=== PATIENT | male | born 1925 | race Caucasian/White ===

== ENCOUNTER → 2016-02-25 | Outpatient (CLI) | payer MEDICARE ==
[~2016-02-25] MED LIST: ATOR20TA15 PO; ATOR20TA42 PO; CENTTAB9 PO; FURO20TA PO; LEVA1.2519 INH; LOSA100T3 PO; MULT1TAB84 PO; NORC7.5T PO; PANT20 PO; POTA-243 PO; PROT40TA PO; SPIRCAP INH; TUMS1000 PO; VANC1000P IV; [UNRECOGNIZED DRUG - CODE] NEB
[2016-02-25 15:50] LABS: AUTOMATED NEUTROPHIL # 22.2 TH/MM3 (1.8-7.7); BASOPHIL % 0.1 % (0.0-2.0); HEMATOCRIT 37.9 % (39.0-51.0); HEMO FLAGS DIFF FINAL; LYMPH % 3.8 % (9.0-44.0); LYMPHOCYTE # 0.9 TH/MM3 (1.0-4.8); MEAN CELL VOLUME 88.6 FL (80.0-100.0); MEAN CORPUSCULAR HEMOGLOBIN 29.8 PG (27.0-34.0); MEAN CORPUSCULAR HGB CONC 33.6 % (32.0-36.0); MONO % 7.2 % (0.0-8.0); NEUT % 88.9 % (16.0-70.0); PLATELET COUNT 387 TH/MM3 (150-450); RED BLOOD COUNT 4.27 MIL/MM3 (4.50-5.90); RED CELL DISTRIBUTION WIDTH 13.5 % (11.6-17.2)
[2016-02-25 15:54] LABS: ALKALINE PHOSPHATASE 147 U/L (45-117); ALT (GPT) 22 U/L (12-78); ANION GAP 15 MEQ/L (5-15); AST (GOT) 10 U/L (15-37); BICARBONATE 26.5 MEQ/L (21.0-32.0); BLOOD UREA NITROGEN 37 MG/DL (7-18); CHLORIDE 93 MEQ/L (98-107); GLOMERULAR FILTRATION RATE 24 ML/MIN (>89); POTASSIUM 3.9 MEQ/L (3.5-5.1); SODIUM (NA) 134 MEQ/L (136-145)
[2016-02-26 02:50] LABS: EBV VCA IgM Negative (Negative)
[2016-02-29 19:54] LABS: CYTOMEGALOVIRUS IGM LESS THAN 0.20 (())
== END ==
LOC: PLAB 12:31
PROVIDERS: ATTEND Internal Medicine
DX: R53.81 Other malaise (principal); R11.0 Nausea
CPT/HCPCS: 36415; 80053; 85025; 86308; 86644; 86645; 86664; 86665

== ENCOUNTER 2016-03-09 15:03 | Inpatient (IN) | payer MEDICARE ==
[~2016-03-09] VITALS: Ht 167.6 cm; Wt 81.4 kg
[2016-03-09] VITALS (18 sets, daily range): BP systolic 77–117; BP diastolic 47–70; PULSE 99–145; RESP 19–31; TEMP 97.8–99.9; O2SAT 95–100
[~2016-03-09 15:03] MED LIST changes: -ATOR20TA15 PO; -FURO20TA PO; -MULT1TAB84 PO; -PANT20 PO; -POTA-243 PO; -VANC1000P IV; -[UNRECOGNIZED DRUG - CODE] NEB
[2016-03-09] MEDS ORDERED: SODIUM CHLOR 0.9% 1000 ML INJ 1,000 ML IV ONE ×3 (15:08→17:45)
[2016-03-09] MEDS ORDERED: SODIUM CHLOR 0.9% 1000 ML INJ 100 ML IV ONE (15:08)
[2016-03-09 15:36] LABS: AUTOMATED NEUTROPHIL # 12.4 TH/MM3 (1.8-7.7); BASOPHIL # 0.3 TH/MM3 (0-0.2); BASOPHIL % 2.2 % (0.0-2.0); EOSINOPHIL % 0.2 % (0.0-4.0); HEMATOCRIT 35.1 % (39.0-51.0); LYMPH % 3.8 % (9.0-44.0); LYMPHOCYTE # 0.5 TH/MM3 (1.0-4.8); MEAN CELL VOLUME 87.4 FL (80.0-100.0); MEAN CORPUSCULAR HEMOGLOBIN 29.1 PG (27.0-34.0); MEAN CORPUSCULAR HGB CONC 33.3 % (32.0-36.0); MONO % 0.4 % (0.0-8.0); NEUT % 93.4 % (16.0-70.0); PLATELET COUNT 712 TH/MM3 (150-450); RED BLOOD COUNT 4.02 MIL/MM3 (4.50-5.90); RED CELL DISTRIBUTION WIDTH 12.8 % (11.6-17.2); WHITE BLOOD COUNT 13.3 TH/MM3 (4.0-11.0)
[2016-03-09] MEDS ORDERED: PROT40TA PO (15:39)
[2016-03-09] MEDS ORDERED: ATOR20TA15 PO (15:39)
[2016-03-09] MEDS ORDERED: [UNRECOGNIZED DRUG - CODE] NEB (15:39)
[2016-03-09] MEDS ORDERED: PANT20 PO (15:39)
[2016-03-09] MEDS ORDERED: SPIRCAP INH (15:39)
[2016-03-09] MEDS ORDERED: MULT1TAB84 PO (15:39)
[2016-03-09] MEDS ORDERED: LOSA100T3 PO (15:39)
[2016-03-09 15:43] LABS: HEMO FLAGS DIFF FINAL
[2016-03-09 15:45] LABS: CHLORIDE 101 MEQ/L (98-107); POTASSIUM 4.3 MEQ/L (3.5-5.1); SODIUM (NA) 138 MEQ/L (136-145)
[2016-03-09 15:49] LABS: ANION GAP 16 MEQ/L (5-15); APTT (PATIENT) 27.1 SEC (24.3-30.1); BICARBONATE 21.3 MEQ/L (21.0-32.0); BLOOD UREA NITROGEN 37 MG/DL (7-18); INTERNATIONAL NORMALIZED RATIO 1.2 RATIO; MAGNESIUM 1.4 MG/DL (1.5-2.5); PROTHROMBIN TIME - PATIENT 13.1 SEC (9.8-11.6)
[2016-03-09 15:51] LABS: ALT (GPT) 28 U/L (12-78); AST (GOT) 24 U/L (15-37); GLOMERULAR FILTRATION RATE 44 ML/MIN (>89)
[2016-03-09 15:53] LABS: TOTAL BILIRUBIN ADULT 0.9 MG/DL (0.2-1.0)
[2016-03-09 15:54] LABS: ALKALINE PHOSPHATASE 282 U/L (45-117)
[2016-03-09 15:57] LABS: CREATINE KINASE 15 U/L (39-308)
--- NOTE | 2016-03-09 16:03 | RADHPO ---
EXAM DATE/TIME: 03/09/2016 15:19 [facility] COMPARISON: No previous studies available for comparison. INDICATIONS : Short of breath MEDICAL HISTORY : Chronic obstructive pulmonary disease. SURGICAL HISTORY : Unknown ENCOUNTER: Initial ACUITY: 1 day PAIN SCORE: Non-responsive. LOCATION: Bilateral chest FINDINGS: A single view of the chest demonstrates the lungs to be symmetrically aerated without evidence of mas s, infiltrate or effusion. The cardiomediastinal contours are unremarkable. Osseous structures are intact. CONCLUSION: Negative for acute process. Rosas Ledezma MD FACR on March 09, 2016 at 16:01 Board Certified Radiologist. This report was verified electronically.
--- NOTE | 2016-03-09 16:05 | PD ---
Physical Exam Narrative Patient was seen by ED physician and signed out to me. Data Data Last Documented VS Vital Signs Date Time Temp Pulse Resp B/P Pulse Ox O2 Delivery O2 Flow Rate FiO2 03/09/16 16:32 135 22 115/66 96 Room Air 03/09/16 15:10 2 03/09/16 15:05 97.8 Orders Electrocardiogram (03/09/16 15:08) Complete Blood Count With Diff (03/09/16 15:08) Comprehensive Metabolic Panel (03/09/16 15:08) Prothrombin Time / Inr (Pt) (03/09/16 15:08) Act Partial Throm Time (Ptt) (03/09/16 15:08) Lactic Acid Sepsis Protocol (03/09/16 15:08) Magnesium (Mg) (03/09/16 15:08) Phosphorus (Po4) (03/09/16 15:08) Lipase (03/09/16 15:08) Ckmb (Isoenzyme) Profile (03/09/16 15:08) Troponin I (03/09/16 15:08) Urinalysis - C+S If Indicated (03/09/16 15:08) Blood Culture (03/09/16 15:08) Chest, Single Ap (03/09/16 15:08) Blood Glucose (03/09/16 15:08) Ecg Monitoring (03/09/16 15:08) Iv Access Insert/Monitor (03/09/16 15:08) Oximetry (03/09/16 15:08) Oxygen Administration (03/09/16 15:08) Sodium Chlor 0.9% 1000 Ml Inj (Ns 1000 M (03/09/16 15:08) Sodium Chlor 0.9% 1000 Ml Inj (Ns 1000 M (03/09/16 15:08) Sodium Chlor 0.9% 1000 Ml Inj (Ns 1000 M (03/09/16 15:08) Ct Pulmonary Angiogram (03/09/16 ) Aztreonam Inj (Azactam Inj) (03/09/16 16:15) Vancomycin Inj (Vancomycin Inj) (03/09/16 16:15) Influenzae A/B Antigen (03/09/16 16:07) Ct Abd/Pel W Iv Contrast(Rout) (03/09/16 17:00) Admit Order (Ed Use Only) (03/09/16 17:01) Labs Laboratory Tests Test 03/09/16 03/09/16 15:15 15:30 White Blood Count 13.3 TH/MM3 Red Blood Count 4.02 MIL/MM3 Hemoglobin 11.7 GM/DL Hematocrit 35.1 % Mean Corpuscular Volume 87.4 FL Mean Corpuscular Hemoglobin 29.1 PG Mean Corpuscular Hemoglobin 33.3 % Concent Red Cell Distribution Width 12.8 % Platelet Count 712 TH/MM3 Mean Platelet Volume 6.9 FL Neutrophils (%) (Auto) 93.4 % Lymphocytes (%) (Auto) 3.8 % Monocytes (%) (Auto) 0.4 % Eosinophils (%) (Auto) 0.2 % Basophils (%) (Auto) 2.2 % Neutrophils # (Auto) 12.4 TH/MM3 Lymphocytes # (Auto) 0.5 TH/MM3 Monocytes # (Auto) 0.1 TH/MM3 Eosinophils # (Auto) 0.0 TH/MM3 Basophils # (Auto) 0.3 TH/MM3 CBC Comment DIFF FINAL Differential Comment Prothrombin Time 13.1 SEC Prothromb Time International 1.2 RATIO Ratio Activated Partial 27.1 SEC Thromboplast Time Sodium Level 138 MEQ/L Potassium Level 4.3 MEQ/L Chloride Level 101 MEQ/L Carbon Dioxide Level 21.3 MEQ/L Anion Gap 16 MEQ/L Blood Urea Nitrogen 37 MG/DL Creatinine 1.50 MG/DL Estimat Glomerular Filtration 44 ML/MIN Rate Random Glucose 135 MG/DL Calcium Level 8.1 MG/DL Phosphorus Level 2.5 MG/DL Magnesium Level 1.4 MG/DL Total Bilirubin 0.9 MG/DL Aspartate Amino Transf 24 U/L (AST/SGOT) Alanine Aminotransferase 28 U/L (ALT/SGPT) Alkaline Phosphatase 282 U/L Total Creatine Kinase 15 U/L Troponin I LESS THAN 0.02 NG/ML Total Protein 7.3 GM/DL Albumin 1.8 GM/DL Lipase 33 U/L Lactic Acid Level 4.8 mmol/L [facility] Supervised Visit with TAMIA: No Interpretation(s) Last Impressions Chest X-Ray 03/09/16 1508 Signed Impressions: Service Date/Time: Wednesday, March 09, 2016 15:19 - CONCLUSION: Negative for acute process. Rosas Ledezma MD FACR 1645 PM. EKG shows atrial fibrillation with RVR rate bundle-branch block. CBC WBC 13.3. Hemoglobin 11.7 hematocrit 35.1. Platelet 7012. 93 neutrophil. BUN 37. Creatinine 1.50. Lactic acid 4.8. Cardiac enzymes are normal. Narrative Course Normal saline solution 2 L IV bolus. Azactam 1 g IV. Vancomycin 1 g IV. Patient became hypotensive. Right femoral vein central line placement. Digoxin 0.5 mg IV. Normal saline solution 1 L IV bolus. Levophed drip started. Critical Care Narrative Aggregate critical care time was 60 minutes. Time to perform other separately billable procedures was not included in the critical care time. My time did not include minutes spent treating any other patients simultaneously or on activities that did not directly contribute to the patient's treatment. The services I provided to this patient were to treat and/or prevent clinically significant deterioration that could result in: I provided critical care services requiring my management, as noted below: Chart data review, documentation time, medication orders and management, vital sign assessments/reviewing monitor data, ordering and reviewing lab tests, ordering and interpreting/reviewing x-rays and diagnostic studies, care of the patient and discussion of the patient with the admitting physicians. Procedures Procedure Narrative CENTRAL VENOUS LINE: The site was prepped with Betadine and sterilely draped. It was infiltrated with 1% lidocaine plain. The deep vein was cannulated using normal Seldinger technique. A 5 lumen central line was placed in the right femoral site and secured with simple interrupted suture. The site was sterilely dressed. The patient tolerated the procedure well. Diagnosis Primary Impression: Severe sepsis Additional Impressions: Acute kidney injury Atrial fibrillation with RVR Admitting Information Admitting Physician Requests: Misbah Krishnan MD Mar 09, 2016 16:05
[2016-03-09] MEDS ORDERED: VANCOMYCIN INJ 1,000 MG in SODIUM CHLOR 0.9% 250 ML INJ 250 ML IV ONE (16:15)
[2016-03-09] MEDS ORDERED: AZTREONAM INJ 1,000 MG in SODIUM CHLORIDE 0.9% INJ 100 ML IV ONE (16:15)
--- NOTE | 2016-03-09 16:25 | PD ---
HPI Chief Complaint: Respiratory Symptoms Time Seen by Provider: 16:12 Travel History International Travel<30 days: No Contact w/Intl Traveler<30days: No Traveled to known affect area: No History of Present Illness HPI Patient is an 89-year-old male presents emergency Department with cough and congestion which is been persistent over the past 2 weeks. Patient states went to his primary care physician and diagnosed with flu and was told it would take 2-3 weeks ago rib. Patient states that he had a coughing fit just prior to arrival which made him feel very dizzy and weak. On arrival patient is tachycardic. Denies any chest pain abdominal pain nausea or vomiting. Does complain of some mild shortness of breath. 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--WHIPPLE PROCEDURE 2011) Musculoskeletal: Yes (OSTEOARTHRITIS) Neurologic: No Psychiatric: No Reproductive: No Respiratory: Yes (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, METS TO ADRENAL GLAND NEAR PANCRE) Immunizations Current: Yes Thyroid Disease: No Tetanus Vaccination: Unknown Influenza Vaccination: Yes ?: Not Past Surgical History Abdominal Surgery: Yes (WHIPPLE PROCEDURE 2011) AICD: No Eye Surgery: Yes ("right eye surgery"--2006) Genitourinary Surgery: Yes (BILATERAL INGUINAL HERNIA) Joint Replacement: No Pacemaker: No Thoracic Surgery: Yes (right middle lung lobectomy 2008) Other Surgery: Yes Social History Alcohol Use: Yes (1 DAILY) Tobacco Use: No Substance Use: No Allergies-Medications (Allergen,Severity, Reaction): Coded Allergies: Penicillin (Verified Allergy, Mild, DENIES ALLERGY TO PCN, 03/09/16) PATIENT STATES HE HAD A TEST AND [facility] STATES HE IS NOT ALLERGIC TO PENICILLIN. VERIFIED 11/23/12 TM Reported Meds & Prescriptions Reported Meds & Active Scripts Active Reported Xopenex Neb (Levalbuterol HCl) 0.31 Mg/3 Ml Neb 0.31 Mg NEB DAILY Spiriva Handihaler (Tiotropium Inh) 18 Mcg Cap 18 Mcg INH DAILY 1 capsule = 18 mcg Protonix (Pantoprazole Sodium) 40 Mg Tab 40 Mg PO DAILY Protonix (Pantoprazole Sodium) 20 Mg Tab 20 Mg PO DAILY Multivitamin Adults (Multiple Vitamins W/ Minerals) 1 Tab 1 Tab PO DAILY Losartan-Hydrochlorothiazide 100-12.5 Mg Tab 1 Tab PO DAILY Atorvastatin (Atorvastatin Calcium) 20 Mg Tab 20 Mg PO DAILY Review of Systems Except as stated in HPI: all other systems reviewed are Neg Physical Exam Narrative GENERAL: Well-developed well-nourished, appears quite dehydrated and ill. SKIN: Warm and dry. Decreased skin turgor. HEAD: Atraumatic. Normocephalic. EYES: Pupils equal and round. No scleral icterus. No injection or drainage. ENT: No nasal bleeding or discharge. Mucous membranes pink and dry. TMs clear bilaterally. NECK: Trachea midline. No JVD. CARDIOVASCULAR: Regular rhythm with tachycardia. No murmur appreciated. 2+ bilateral equal pulses in all 4 extremities. RESPIRATORY: No accessory muscle use. Clear to auscultation. Breath sounds equal bilaterally. GASTROINTESTINAL: Abdomen soft, non-tender, nondistended. Hepatic and splenic margins not palpable. MUSCULOSKELETAL: No obvious deformities. No clubbing. No cyanosis. No edema. NEUROLOGICAL: Awake and alert. No obvious cranial nerve deficits. Motor grossly within normal limits. Normal speech. PSYCHIATRIC: Appropriate mood and affect; insight and judgment normal. Data Data Last Documented VS Vital Signs Date Time Temp Pulse Resp B/P Pulse Ox O2 Delivery O2 Flow Rate FiO2 03/09/16 15:54 142 20 90/49 97 03/09/16 15:10 Nasal Cannula 2 03/09/16 15:05 97.8 Orders Electrocardiogram (03/09/16 15:08) Complete Blood Count With Diff (03/09/16 15:08) Comprehensive Metabolic Panel (03/09/16 15:08) Prothrombin Time / Inr (Pt) (03/09/16 15:08) Act Partial Throm Time (Ptt) (03/09/16 15:08) Lactic Acid Sepsis Protocol (03/09/16 15:08) Magnesium (Mg) (03/09/16 15:08) Phosphorus (Po4) (03/09/16 15:08) Lipase (03/09/16 15:08) Ckmb (Isoenzyme) Profile (03/09/16 15:08) Troponin I (03/09/16 15:08) Urinalysis - C+S If Indicated (03/09/16 15:08) Blood Culture (03/09/16 15:08) Chest, Single Ap (03/09/16 15:08) Blood Glucose (03/09/16 15:08) Ecg Monitoring (03/09/16 15:08) Iv Access Insert/Monitor (03/09/16 15:08) Oximetry (03/09/16 15:08) Oxygen Administration (03/09/16 15:08) Sodium Chlor 0.9% 1000 Ml Inj (Ns 1000 M (03/09/16 15:08) Sodium Chlor 0.9% 1000 Ml Inj (Ns 1000 M (03/09/16 15:08) Sodium Chlor 0.9% 1000 Ml Inj (Ns 1000 M (03/09/16 15:08) Ct Pulmonary Angiogram (03/09/16 ) Aztreonam Inj (Azactam Inj) (03/09/16 16:15) Vancomycin Inj (Vancomycin Inj) (03/09/16 16:15) Influenzae A/B Antigen (03/09/16 16:07) Labs Laboratory Tests Test 03/09/16 03/09/16 15:15 15:30 White Blood Count 13.3 TH/MM3 Red Blood Count 4.02 MIL/MM3 Hemoglobin 11.7 GM/DL Hematocrit 35.1 % Mean Corpuscular Volume 87.4 FL Mean Corpuscular Hemoglobin 29.1 PG Mean Corpuscular Hemoglobin 33.3 % Concent Red Cell Distribution Width 12.8 % Platelet Count 712 TH/MM3 Mean Platelet Volume 6.9 FL Neutrophils (%) (Auto) 93.4 % Lymphocytes (%) (Auto) 3.8 % Monocytes (%) (Auto) 0.4 % Eosinophils (%) (Auto) 0.2 % Basophils (%) (Auto) 2.2 % Neutrophils # (Auto) 12.4 TH/MM3 Lymphocytes # (Auto) 0.5 TH/MM3 Monocytes # (Auto) 0.1 TH/MM3 Eosinophils # (Auto) 0.0 TH/MM3 Basophils # (Auto) 0.3 TH/MM3 CBC Comment DIFF FINAL Differential Comment Prothrombin Time 13.1 SEC Prothromb Time International 1.2 RATIO Ratio Activated Partial 27.1 SEC Thromboplast Time Sodium Level 138 MEQ/L Potassium Level 4.3 MEQ/L Chloride Level 101 MEQ/L Carbon Dioxide Level 21.3 MEQ/L Anion Gap 16 MEQ/L Blood Urea Nitrogen 37 MG/DL Creatinine 1.50 MG/DL Estimat Glomerular Filtration 44 ML/MIN Rate Random Glucose 135 MG/DL Calcium Level 8.1 MG/DL Phosphorus Level 2.5 MG/DL Magnesium Level 1.4 MG/DL Total Bilirubin 0.9 MG/DL Aspartate Amino Transf 24 U/L (AST/SGOT) Alanine Aminotransferase 28 U/L (ALT/SGPT) Alkaline Phosphatase 282 U/L Total Creatine Kinase 15 U/L Troponin I LESS THAN 0.02 NG/ML Total Protein 7.3 GM/DL Albumin 1.8 GM/DL Lipase 33 U/L Lactic Acid Level 4.8 mmol/L MDM Medical Decision Making Medical Screen Exam Complete: Yes Emergency Medical Condition: Yes Interpretation(s) EKG shows atrial fibrillation with RVR rate of 148. 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 No concerning ST changes at this time. This is an abnormal EKG. Differential Diagnosis Dehydration, sepsis, MARILOU, dehydration, pneumonia, PE. Narrative Course Patient room to the emergency department, sepsis protocol resuscitation was started and patient was given 30 cc per KG bolus of normal saline. Lactic acid returned at almost 5. Tachycardia starting to normalize after initial fluid bolus of 1 L and a second liter is in progress. Discussed the patient he will be admitted to the hospital. Still awaiting complete laboratory workup as well as CT PE protocol. Patient was discussed with Dr. Shah antibiotics were ordered. Chest x-ray showed no acute cardiopulmonary abnormality. Diagnosis Primary Impression: Severe sepsis Additional Impression: Acute kidney injury Admitting Information Admitting Physician Requests: Admit Condition: Serious Ramy Zuleta MD Mar 09, 2016 16:24
[2016-03-09] MEDS ORDERED: MISCELLANEOUS NURSING INFORMATION XX SCH (17:00)
[2016-03-09] MEDS ORDERED: CHLORHEXIDINE GLUCONATE 2 % 1 PACK (2 CLOTHS) TOP PRN (17:00)
[2016-03-09] MEDS ORDERED: SODIUM CHLORIDE 0.9% FLUSH 5 ML FLUSH IV FLUSH PRN (17:00)
[2016-03-09] MEDS ORDERED: SODIUM CHLORIDE 0.9% FLUSH 5 ML FLUSH IVF PRN (17:15)
[2016-03-09] MEDS ORDERED: ONDANSETRON HCL 4 MG/2 ML VIAL IV PRN (17:15)
[2016-03-09] MEDS ORDERED: Vancomycin Consult Pharmacy 1 EA OTHER SCH (17:15)
[2016-03-09] MEDS ORDERED: ACETAMINOPHEN 325 MG TAB PO PRN (17:15)
[2016-03-09] MEDS: SODIUM CHLOR 0.9% 1000 ML INJ 1,000 ML IV SCH (17:21)
[2016-03-09] MEDS ORDERED: IOHEXOL 350 MG/ML 10 ML VIAL (for RAD DIAG) IV ONE (17:31)
[2016-03-09 17:42] LABS: LACTIC ACID GHOST NOT REPORTABLE
[2016-03-09] MEDS ORDERED: MAGNESIUM SULFATE 1 GM PREMIX 100 ML IV ONE (17:45)
[2016-03-09] MEDS ORDERED: DILTIAZEM INJ 125 MG in SODIUM CHLORIDE 0.9% INJ 100 ML IV SCH (17:45)
[2016-03-09] MEDS ORDERED: DIGOXIN 0.5 MG/2 ML VIAL IV PUSH ONE (17:45)
--- NOTE | 2016-03-09 17:52 | RADHPO ---
EXAM DATE/TIME: 03/09/2016 16:57 [facility] COMPARISON: No previous studies available for comparison. INDICATIONS : Short of breath. IV CONTRAST: 72 cc Omnipaque 350 (iohexol) IV ; Cumulative dose for multiple exams. RADIATION DOSE: 14.60 CTDIvol (mGy) MEDICAL HISTORY : Hypertension. Chronic obstructive pulmonary disease. Mets to adreanl gland SURGICAL HISTORY : None. ENCOUNTER: Initial ACUITY: 1 day PAIN SCALE: 3/10 LOCATION: chest TECHNIQUE: Volumetric scanning of the chest was performed using a pulmonary embolism protocol MIP images were re constructed. Using automated exposure control and adjustment of the mA and/or kV according to patien t size, radiation dose was kept as low as reasonably achievable to obtain optimal diagnostic quality images. FINDINGS: PULMONARY ARTERIES: No filling defects are seen in the pulmonary arteries through the segmental level. LUNGS: There is no consolidation or pneumothorax . There is linear scarring or atelectasis in the right mid dle lobe laterally and in a nazia-fissural distribution again, in the right lung. No concerning pulmon temi nodule is visualized. PLEURAE: There is no pleural thickening or pleural effusion. MEDIASTINUM: There is good visualization of the great vessels of the middle mediastinum. No evidence of mediastin al or hilar adenopathy/mass. MUSCULOSKELETAL: There appears be partial bony fusion of ribs #5 and 6 laterally on the right. MISCELLANEOUS: The visualized upper abdominal organs demonstrate no acute abnormality. However, there is a prominent cystic structure either adjacent to or involving the medial aspect of the right hepatic lobe/caudate . In addition, the patient had a cholecystectomy with extensive pneumobilia. CONCLUSION: 1. Minimal linear scarring or atelectasis in the right hemithorax with no confluent infiltrate or pul monary embolus. 2. Pneumobilia which may be related to a prior cholecystectomy. 3. Cystic structure just medial to and possibly involving the right hepatic lobe. Findings are very n onspecific and include entities such as pseudocyst, hematoma, abscess or cystic mass lesion. Please s ee CT scan of the abdomen for further characterization. Jin Damon MD on March 09, 2016 at 17:39 Board Certified Radiologist. This report was verified electronically.
--- NOTE | 2016-03-09 17:52 | RADHPO ---
EXAM DATE/TIME: 03/09/2016 16:57 [facility] COMPARISON: No previous studies available for comparison. INDICATIONS : Abdomen pain, fever. IV CONTRAST: 72 cc Omnipaque 350 (iohexol) IV ORAL CONTRAST: No oral contrast ingested. RADIATION DOSE: 15.87 CTDIvol (mGy) MEDICAL HISTORY : Hypertension. Chronic obstructive pulmonary disease. 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 ENCOUNTER: Initial ACUITY: 1 day PAIN SCALE: 3/10 LOCATION: Abdomen TECHNIQUE: Volumetric scanning of the abdomen and pelvis was performed. Using automated exposure control and adjustment of the mA and/or kV according to patient size, radiation dose was kept as low as reasonably achievable to obtain optimal diagnostic quality images. FINDINGS: Pleural calcification is seen in the right lung base. Moderate emphysematous changes ar e evident. Small pericardial effusion is noted. The patient has had apparent Oscar-en-Y reconstruction of bile duct with a Whipple There is air in the bile ducts. There is a loop bowel in the mj hepatis. Spleen is unremarkable. Distal pancreas is surgically resected. There is adenopathy in the abdomen . There is symmetrical renal function. There is no ascites evident. A large amount of stool is seen in the colon. Small inguinal hernia is seen on the right. Review of bone windows reveals scattered areas of sclerosis in the lower thoracic vertebrae and ileum in a nonspecific fashion. This easily could be metastatic disease. CONCLUSION: 1. Apparent Whipple with Oscar-en-Y reconstruction of a bile duct. There is portal air evident. 2. There is adenopathy in the mj hepatis as well as in the retroperitoneum. The largest of these nodes measure 2 cm and are suspicious for neoplastic nodes. Rosas Ledezma MD FACR on March 09, 2016 at 17:36 Board Certified Radiologist. This report was verified electronically.
[2016-03-09] MEDS ORDERED: TERBUTALINE INJ 1 MG/ML AMP SQ PRN (18:30)
[2016-03-09] MEDS ORDERED: NOREPINEPHRINE-DEXTROSE DRIP 250 ML IV SCH (18:30)
[2016-03-09 18:38] LABS: BLOOD GAS BASE EXCESS -3.3 mmol/L (-2-2); BLOOD GAS CARBOXYHEMOGLOBIN 1.2 % (0-4); BLOOD GAS HCO3 20 mmol/L (22-26); BLOOD GAS METHEMOGLOBIN 1.5 % (0-2); BLOOD GAS O2 HGB SATURATION 96 % (90-100); BLOOD GAS OXYGEN CONTENT 14.1 Vol % (12.0-20.0); BLOOD GAS PCO2 27 mmHG (38-42); BLOOD GAS PO2 88 mmHG (61-120); BLOOD GAS TOTAL HGB 10.4 G/DL (12.0-16.0); CRITICAL VALUE NO; DRAW SITE RT RADIAL; FIO2 28 %; LITER FLOW 2 L/M; NUMBER OF ARTERIAL PUNCTURES 1; OXYGEN DEVICE NASAL CANNULA; STAT YES; TEMP CORR TO 98.6; ULNAR PULSE PRESENT
--- NOTE | 2016-03-09 20:35 | HHI.HP ---
[facility] Service Critical Care Medicine Primary Care Physician Duncan Ramirez MD Admission Diagnosis severe sepsis. Acute kidney injury. Diagnosis: Chief Complaint: fever Travel History International Travel<30 Days: No Contact w/Intl Traveler <30 Da: No Traveled to Known Affected Are: No History of Present Illness This is an 89yM with remote history of lung cancer s/p RML lobectomy with recurrence in the right adrenal s/p Whipple's procedure, who presented initially to his PCP a few weeks ago with fever, chills, cough and was diagnosed with Influenza A and underwent full course of treatment with Tamiflu. He represents today with worsening fever, chills and cough to the [place] emergency department. On presentation, he was hypotensive, in new-onset A. Fib RVR, with elevated wbc. Despite this, his room air spo2 was 96%. He vehemently denies Abdominal pain, nausea, vomiting, and he continues to tolerate a diet, including breakfast this morning. He does note 2-3 loose stools today, but this is normal and usual for him, and he would not classify this as diarrhea for him. No blood in his stool, dark tarry stools. He had a CT pulmonary angiogram that was negative for PE and negative for acute alveolar process. He had a CT abd/pelvis which demonstrated small amount of pneumobilia thought to be secondary to his prior Whipple's procedure. I spoke with the on-call radiologist who re-examined the CT abd/pelvis and thought the dilated loop of small bowel adjacent to the liver could possibly be related to a closed-loop bowel obstruction radiographically. The patient was given 0.5mg digoxin iv x 1 and started on norepinephrine for hypotension. A femoral CVL was placed in the emergency department. His initial lactate was 4.7 in the ED. He is transferred to the ICU at [facility] for work-up and management of presumed septic shock, of unknown source. I evaluated the patient when he arrived to the ICU around 20:00. He denies any complaints, except for a mild cough, which has not changed significantly. He again denies N/V/Diarrhea to me. He does state he has not urinated today, despite 3L ivf resuscitation in the emergency department. He does not have a Ames catheter. I immediately asked for one to be placed. His repeat lactate is down to 2.5. From an oncologic standpoint, he visits [facility] every 6 months for routine follow-up and has been in remission for 5 years now. His last screening CT scan was in September 2015. Review of Systems Constitutional: COMPLAINS OF: Diaphoretic episodes, Fever, Chills, DENIES: Fatigue, Weight loss, Dizziness, Night Sweats Endocrine: COMPLAINS OF: Heat/cold intolerance, DENIES: Polydipsia, Polyuria Respiratory: COMPLAINS OF: Cough, DENIES: Apneas, Wheezing, Hemoptysis, Sputum production, Shortness of breath Cardiovascular: DENIES: Chest pain, Palpitations, Syncope, Dyspnea on Exertion , Lower Extremity Edema, Orthopnea Gastrointestinal: DENIES: Abdominal pain, Black stools, Bloody stools, Constipation, Diarrhea, Nausea, Vomiting Genitourinary: DENIES: Urinary frequency, Urinary incontinence Musculoskeletal: DENIES: Back pain, Neck pain Neurologic: DENIES: Headache, Localized weakness Past Family Social History Allergies: Coded Allergies: Penicillin (Verified Allergy, Mild, DENIES ALLERGY TO PCN, 03/09/16) PATIENT STATES HE HAD A TEST AND [facility] STATES HE IS NOT ALLERGIC TO PENICILLIN. 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, in remission COPD CAD Hiatal hernia GERD Hypertension Osteoarthritis Past Surgical History Whipple procedure in 2011 Right eye surgery in 2006 Bilateral inguinal hernia repair Right middle lobe lobectomy 2008 Reported Medications Xopenex Neb (Levalbuterol HCl) 0.31 Mg/3 Ml Neb 0.31 Mg NEB DAILY Spiriva Handihaler (Tiotropium Inh) 18 Mcg Cap 18 Mcg INH DAILY 1 capsule = 18 mcg Protonix (Pantoprazole Sodium) 40 Mg Tab 40 Mg PO DAILY Protonix (Pantoprazole Sodium) 20 Mg Tab 20 Mg PO DAILY Multivitamin Adults (Multiple Vitamins W/ Minerals) 1 Tab 1 Tab PO DAILY Losartan-Hydrochlorothiazide 100-12.5 Mg Tab 1 Tab PO DAILY Atorvastatin (Atorvastatin Calcium) 20 Mg Tab 20 Mg PO DAILY Active Ordered Medications See MAR Family History Reviewed and found to be noncontributory to the patient's acute illness. Social History drinks 1 drink daily, denies tob or DOA. Physical Exam Vital Signs Vital Signs Date Time Temp Pulse Resp B/P Pulse Ox O2 Delivery O2 Flow Rate FiO2 03/09/16 19:55 99.9 120 20 117/60 95 03/09/16 19:15 125 21 109/64 97 Nasal Cannula 2 03/09/16 19:10 121 19 110/64 98 Nasal Cannula 2 03/09/16 19:05 117 21 102/58 98 Nasal Cannula 2 03/09/16 18:50 118 20 99/61 98 2 03/09/16 18:28 118 20 85/50 97 Nasal Cannula 2 03/09/16 17:27 96 21 03/09/16 17:25 99.7 132 22 77/47 95 Room Air 03/09/16 16:32 135 22 115/66 96 Room Air 03/09/16 16:20 145 22 113/58 96 Room Air 03/09/16 15:54 142 20 90/49 97 03/09/16 15:10 100 Nasal Cannula 2 03/09/16 15:10 100 Nasal Cannula 2 03/09/16 15:10 100 Nasal Cannula 2 03/09/16 15:05 97.8 99 20 100/70 100 Physical Exam GENERAL: Elderly male, lying in bed, nasal cannula o2 HEENT: Normocephalic. Atraumatic. Pupils equal, round, reactive. NECK: Trachea is midline. There is no JVD. CHEST: Equal chest rise. Clear to auscultation bilaterally. CARDIOVASCULAR: Tachycardic rate, irregularly irregular rhythm. No appreciable murmurs. ABDOMEN: Soft, nontender, nondistended. No guarding. Normoactive bowel sounds. No hepatosplenomegaly. MUSCULOSKELETAL: No peripheral edema. Distal pulses 2+. NEUROLOGICAL: RASS 0. CAM -. Follows commands in all 4 extremities. No gross focal motor or sensory deficits. Laboratory Laboratory Tests Test 03/09/16 03/09/16 03/09/16 03/09/16 15:15 15:30 17:50 18:29 White Blood Count 13.3 Red Blood Count 4.02 Hemoglobin 11.7 Hematocrit 35.1 Mean Corpuscular Volume 87.4 Mean Corpuscular Hemoglobin 29.1 Mean Corpuscular Hemoglobin 33.3 Concent Red Cell Distribution Width 12.8 Platelet Count 712 Mean Platelet Volume 6.9 Neutrophils (%) (Auto) 93.4 Lymphocytes (%) (Auto) 3.8 Monocytes (%) (Auto) 0.4 Eosinophils (%) (Auto) 0.2 Basophils (%) (Auto) 2.2 Neutrophils # (Auto) 12.4 Lymphocytes # (Auto) 0.5 Monocytes # (Auto) 0.1 Eosinophils # (Auto) 0.0 Basophils # (Auto) 0.3 CBC Comment DIFF FINAL Differential Comment Prothrombin Time 13.1 Prothromb Time International 1.2 Ratio Activated Partial 27.1 Thromboplast Time Sodium Level 138 Potassium Level 4.3 Chloride Level 101 Carbon Dioxide Level 21.3 Anion Gap 16 Blood Urea Nitrogen 37 Creatinine 1.50 Estimat Glomerular Filtration 44 Rate Random Glucose 135 Calcium Level 8.1 Phosphorus Level 2.5 Magnesium Level 1.4 Total Bilirubin 0.9 Aspartate Amino Transf 24 (AST/SGOT) Alanine Aminotransferase 28 (ALT/SGPT) Alkaline Phosphatase 282 Total Creatine Kinase 15 Troponin I LESS THAN 0.02 Total Protein 7.3 Albumin 1.8 Lipase 33 Lactic Acid Level 4.8 2.3 Blood Gas Puncture Site RT RADIAL Blood Gas Patient Temperature 98.6 Blood Gas HCO3 20 Blood Gas Base Excess -3.3 Blood Gas Oxygen Saturation 96 Arterial Blood pH 7.47 Arterial Blood Partial 27 Pressure CO2 Arterial Blood Partial 88 Pressure O2 Arterial Blood Oxygen Content 14.1 Arterial Blood 1.2 Carboxyhemoglobin Arterial Blood Methemoglobin 1.5 Blood Gas Hemoglobin 10.4 Oxygen Delivery Device NASAL CANNULA Blood Gas Liter Flow 2 Blood Gas Inspired Oxygen 28 Date/Time Procedure Status Source Growth 03/09/16 16:20 Influenza Types A,B Antigen ([facility]) - Final Complete Nasal Washing NEGATIVE FOR FLU A AND B ANTIGEN.... 03/09/16 15:30 Aerobic Blood Culture Received Blood Peripheral Pending 03/09/16 15:30 Anaerobic Blood Culture Received Blood Peripheral Pending Result Diagram: 03/09/16 1515 03/09/16 1515 Assessment and Plan Assessment and Plan Assessment: This is an 82-year-old male with recent history of influenza who presents now with dehydration, lactic acidosis, septic shock, new onset A. fib with rapid ventricular response. His source of sepsis is unclear at this time. Certainly a secondary bacterial pulmonary infection is a possibility given his recent influenza, however his oxygen requirement is minimal and his chest CT is without evidence of consolidative infiltrate. His CT abdomen and pelvis is concerning for closed loop obstruction, however the patient has no history of nausea, vomiting, abdominal pain, diarrhea, and continues to tolerate a regular diet. This should be exceedingly uncommon rare to have septic shock from a closed loop bowel obstruction without any GI symptoms whatsoever. It is concerning the patient has not made much urine. We will place Ames catheter and send off a UA with possible urine culture. For now, his lactic acidosis and his hypertension requiring vasopressors as concerning an 89-year-old male with now multisystem organ failure with renal involvement and cardiac involvement given his new onset A. fib. He remains critically ill this time and although he is not intubated, he is at high risk for further decompensation. Plan by systems: Neurologic: Tylenol, morphine as needed for pain Respiratory: Recent influenza Possible secondary bacterial pneumonia COPD Wean oxygen by nasal cannula for goal SPO2 greater than 90% Nebs every 6 and every 2 when necessary Antibiotics as described below Incentive spirometer to bedside Cardiovascular: Atrial fibrillation with rapid ventricular response Septic shock Status post digoxin 0.5 mg IV 03/09 in the emergency department Likely rated to SIRS response Follow-up TSH, free T4 Troponins negative We'll obtain 2-D echocardiogram Currently rate controlled with heart rate less than 120. Given his vasopressor requirement, he will likely be a better candidate for amiodarone than diltiazem. Continue norepinephrine for goal map greater than 65 Follow-up Lactate in the morning Renal: Acute kidney injury Place Ames catheter Every hour urine outputs Likely prerenal secondary to septic shock -- Strict I/Os FEN/GI: Acute protein calorie malnutritionmild Continue maintenance fluids normal saline at 84 cc an hour ICU electrolyte protocol Nothing by mouth for now We'll perform nursing bedside swallow assessment and advance to clear liquid diet if he passes. Daily BMP Heme/ID: Septic shock Possible secondary pulmonary bacterial infection Daily CBC Follow-up blood, urine, sputum cultures Continue vancomycin with pharmacy dosing Continue aztreonam We'll add azithromycin for possible atypical coverage Endocrine: Hyperglycemia of critical illness Medium scale, every 6 hours -- SSI Prophylaxis: GI Prophylaxis Does not meet evidence-based criteria for GI prophylaxis at this time DVT Prophylaxis -- SCDs Lovenox 30 mg subcutaneous every 24 hours Lines: Peripheral IVs 03/09 femoral central venous catheter, inserted in the ER. We will keep this for now given pressor requirement Dispo: Admit to the ICU. Given his age and comorbidities and multiple system organ failure and septic shock he remains critically ill. This patient remains critically ill with one or more organ systems which are or may become a threat to life. I have spent in excess of 38 minutes discontinuously in the care and management of this patient. This time is exclusive of procedures, and includes, but is not limited to, evaluation of the patient, review of the medical record, discussions with family, consultants, nursing staff, or respiratory therapy, and documentation in the medical record. Code Status Full Code Polo Perez MD Mar 09, 2016 20:35
[2016-03-09] MEDS: SODIUM CHLORIDE 0.9% FLUSH 5 ML FLUSH IV FLUSH SCH (21:45)
[2016-03-09] MEDS: ENOXAPARIN SODIUM 30 MG/0.3 ML SYRINGE SQ SCH (21:45)
[2016-03-09] MEDS: SODIUM CHLORIDE 0.9% FLUSH 5 ML FLUSH IVF SCH (21:46)
[2016-03-10] VITALS (15 sets, daily range): BP systolic 98–105; BP diastolic 54–59; PULSE 79–92; RESP 22–31; TEMP 97.8–98.3; O2SAT 96–100
[2016-03-10] MEDS: CHLORHEXIDINE GLUCONATE 2 % 1 PACK (2 CLOTHS) TOP SCH (00:23)
[2016-03-10] MEDS: AZTREONAM INJ 1,000 MG in SODIUM CHLORIDE 0.9% INJ 100 ML IV SCH ×3 (00:23→17:00)
[2016-03-10] MEDS: AZITHROMYCIN INJ 500 MG in SODIUM CHLOR 0.9% 250 ML INJ 250 ML IV SCH (03:06)
[2016-03-10 03:57] LABS: HEMATOCRIT 27.7 % (39.0-51.0); MEAN CELL VOLUME 87.9 FL (80.0-100.0); MEAN CORPUSCULAR HEMOGLOBIN 28.9 PG (27.0-34.0); MEAN CORPUSCULAR HGB CONC 32.9 % (32.0-36.0); PLATELET COUNT 491 TH/MM3 (150-450); RED BLOOD COUNT 3.15 MIL/MM3 (4.50-5.90); RED CELL DISTRIBUTION WIDTH 13.8 % (11.6-17.2); WHITE BLOOD COUNT 46.8 TH/MM3 (4.0-11.0)
[2016-03-10 04:01] LABS: HEMO FLAGS AUTO DIFF
[2016-03-10 04:22] LABS: BICARBONATE 21.6 MEQ/L (21.0-32.0); CALCIUM-PROTEIN CORRECTED 8.2 MG/DL (8.5-10.1); POTASSIUM 4.4 MEQ/L (3.5-5.1); TOTAL BILIRUBIN ADULT 0.4 MG/DL (0.2-1.0)
[2016-03-10] MEDS: SODIUM CHLOR 0.9% 1000 ML INJ 1,000 ML IV SCH ×2 (04:52→16:47)
--- NOTE | 2016-03-10 06:21 | RADRPT ---
EXAM DATE/TIME: 03/10/2016 04:39 [place] COMPARISON: CT PULMONARY ANGIOGRAM, March 09, 2016, 16:57. CHEST SINGLE AP, March 09, 2016, 15:19. INDICATIONS : Respiratory distress. MEDICAL HISTORY : Chronic obstructive pulmonary disease. SURGICAL HISTORY : None. ENCOUNTER: Subsequent ACUITY: 2 days PAIN SCORE: Non-responsive. LOCATION: Bilateral chest FINDINGS: Mild streaky basilar parenchymal opacity persists. Cardiomediastinal contours are stable. CONCLUSION: No significant change. Guzman Cifuentes MD on March 10, 2016 at 6:18 Board Certified Radiologist. This report was verified electronically.
[2016-03-10 07:00] LABS: BANDS 2 % (0-6); NEUTROPHIL # MANUAL DIFF 45.9 TH/MM3 (1.8-7.7); POLYS (SEG NEUTROPHILS) 96 % (16-70); WBC DIFF SAMPLE 100
[2016-03-10 07:01] LABS: PLATELET ESTIMATE SMEAR HIGH (NORMAL); PLATELET MORPHOLOGY NORMAL (NORMAL); SCAN/DIFF FINAL DIFF MANUAL
--- NOTE | 2016-03-10 08:15 | HHI.CCPN ---
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 He represents today with worsening fever, chills and cough to the [place] emergency department. On presentation, he was hypotensive, in new-onset A. Fib RVR, with elevated wbc. Despite this, his room air spo2 was 96%. He vehemently denies Abdominal pain, nausea, vomiting, and he continues to tolerate a diet, including breakfast this morning. He does note 2-3 loose stools today, but this is normal and usual for him, and he would not classify this as diarrhea for him. No blood in his stool, dark tarry stools. He had a CT pulmonary angiogram that was negative for PE and negative for acute alveolar process. He had a CT abd/pelvis which demonstrated small amount of pneumobilia thought to be secondary to his prior Whipple's procedure. I spoke with the on-call radiologist who re-examined the CT abd/pelvis and thought the dilated loop of small bowel adjacent to the liver could possibly be related to a closed-loop bowel obstruction radiographically. The patient was given 0.5mg digoxin iv x 1 and started on norepinephrine for hypotension. A femoral CVL was placed in the emergency department. His initial lactate was 4.7 in the ED. He is transferred to the ICU at [facility] for work-up and management of presumed septic shock, of unknown source. I evaluated the patient when he arrived to the ICU around 20:00. He denies any complaints, except for a mild cough, which has not changed significantly. He again denies N/V/Diarrhea to me. He does state he has not urinated today, despite 3L ivf resuscitation in the emergency department. He does not have a Ames catheter. I immediately asked for one to be placed. His repeat lactate is down to 2.5. From an oncologic standpoint, he visits [facility] every 6 months for routine follow-up and has been in remission for 5 years now. His last screening CT scan was in September 2015. SUBJ 03/10: Sitting up in bed, feels much better, Off Levophed. Creat stable at 1.5, UO improving. White count has increased from 13.3 to 47, but lactic acid has cleared Objective Vital Signs Date Time Temp Pulse Resp B/P Pulse Ox O2 Delivery O2 Flow Rate FiO2 03/10/16 06:00 82 03/10/16 04:00 97.8 31 98/56 97 03/09/16 19:30 Nasal Cannula 2 03/09/16 17:27 21 Intake and Output 03/09/16 03/09/16 03/10/16 08:00 16:00 00:00 Intake Total 2974 ml Balance 2974 ml Result Diagram: 03/10/16 0335 03/10/16 0335 Other Results Microbiology Date/Time Procedure Status Source Growth 03/09/16 16:20 Influenza Types A,B Antigen ([facility]) - Final Complete Nasal Washing NEGATIVE FOR FLU A AND B ANTIGEN.... Laboratory Tests Test 03/09/16 18:29 Blood Gas Puncture Site RT RADIAL Blood Gas Patient Temperature 98.6 Blood Gas HCO3 20 mmol/L (22-26) Blood Gas Base Excess -3.3 mmol/L (-2-2) Blood Gas Oxygen Saturation 96 % (90-100) Arterial Blood pH 7.47 (7.380-7.420) Arterial Blood Partial 27 mmHG (38-42) Pressure CO2 Arterial Blood Partial 88 mmHG Pressure O2 (61-120) Arterial Blood Oxygen Content 14.1 Vol % (12.0-20.0) Arterial Blood 1.2 % (0-4) Carboxyhemoglobin Arterial Blood Methemoglobin 1.5 % (0-2) Blood Gas Hemoglobin 10.4 G/DL (12.0-16.0) Oxygen Delivery Device NASAL CANNULA Blood Gas Liter Flow 2 L/M Blood Gas Inspired Oxygen 28 % Objective Remarks GENERAL: Elderly male, sitting up in bed, nasal cannula o2 HEENT: Normocephalic. Atraumatic. Pupils equal, round, reactive. NECK: Trachea is midline. There is no JVD. CHEST: Equal chest rise. Clear to auscultation bilaterally. CARDIOVASCULAR: NSR. No appreciable murmurs. ABDOMEN: Soft, nontender, nondistended. No guarding. Normoactive bowel sounds. No hepatosplenomegaly. MUSCULOSKELETAL: No peripheral edema. Distal pulses 2+. NEUROLOGICAL: AOx3. Follows commands in all 4 extremities. No gross focal motor or sensory deficits. Urinary Catheter: Yes Assessment to: Continue Vascular Central Line Catheter: Yes Assessment to: Remove A/P Assessment and Plan Assessment: This is an 82-year-old male with recent history of influenza who presents now with dehydration, lactic acidosis, septic shock, new onset A. fib with rapid ventricular response. His source of sepsis is unclear at this time. Certainly a secondary bacterial pulmonary infection is a possibility given his recent influenza, however his oxygen requirement is minimal and his chest CT is without evidence of consolidative infiltrate. His CT abdomen and pelvis is concerning for closed loop obstruction, however the patient has no history of nausea, vomiting, abdominal pain, diarrhea, and continues to tolerate a regular diet. This should be exceedingly uncommon rare to have septic shock from a closed loop bowel obstruction without any GI symptoms whatsoever. He remains ill but improving Plan by systems: Neurologic: Tylenol, morphine as needed for pain Respiratory: Recent influenza Possible secondary bacterial pneumonia COPD Wean oxygen by nasal cannula for goal SPO2 greater than 90% Nebs every 6 and every 2 when necessary Antibiotics as described below Incentive spirometer to bedside Cardiovascular: Atrial fibrillation with rapid ventricular response Septic shock-resolved Status post digoxin 0.5 mg IV 03/09 in the emergency department, NSR now --Cardiology following, Echo pending Troponins negative --Weaned of Levophed Follow-up Lactate in the morning-normal Renal: Acute kidney injury Place Ames catheter Every hour urine outputs Likely prerenal secondary to septic shock --Strict I/Os FEN/GI: Acute protein calorie malnutritionmild Continue maintenance fluids normal saline at 84 cc an hour ICU electrolyte protocol Start regular diet today Daily BMP Heme/ID: Septic shock-resolved Possible secondary pulmonary bacterial infection Daily CBC Follow-up blood, urine, sputum cultures Continue vancomycin with pharmacy dosing Continue aztreonam Azithromycin for possible atypical coverage --ID consulted due to increasing WBC count Endocrine: Hyperglycemia of critical illness Medium scale, every 6 hours -- SSI Prophylaxis: GI Prophylaxis Does not meet evidence-based criteria for GI prophylaxis at this time DVT Prophylaxis -- SCDs Lovenox 30 mg subcutaneous every 24 hours Lines: Peripheral IVs 03/09 femoral central venous catheter, inserted in the ER. DC today Dispo: Continue ICU Care Consult [facility] to assume care in Gemma Hinds MD Mar 10, 2016 08:15 Dispo: Admit to the ICU. Given his age and comorbidities and multiple system organ failure and septic shock he remains critically ill. This patient remains critically ill with one or more organ systems which are or may become a threat to life. I have spent in excess of 38 minutes discontinuously in the care and management of this patient. This time is exclusive of procedures, and includes, but is not limited to, evaluation of the patient, review of the medical record, discussions with family, consultants, nursing staff, or respiratory therapy, and documentation in the medical record. Gemma Hinds MD Mar 10, 2016 08:15
[2016-03-10] MEDS: PANTOPRAZOLE SODIUM 40 MG VIAL IV SCH (08:17)
[2016-03-10] MEDS: SODIUM CHLORIDE 0.9% FLUSH 5 ML FLUSH IV FLUSH SCH ×2 (09:00→21:00)
[2016-03-10] MEDS: SODIUM CHLORIDE 0.9% FLUSH 5 ML FLUSH IVF SCH ×2 (09:00→21:00)
[2016-03-10] MEDS: ATORVASTATIN 20 MG TAB PO SCH (09:00)
[2016-03-10] MEDS: RESP: ALBUTEROL 2.5 MG/IPRATROPIUM 0.5 MG NEB (PRN) INH (09:02)
--- NOTE | 2016-03-10 09:11 | PD.CONS ---
HPI Service CV Consult Requested By glenn Reason for Consult new onset a-fib Primary Care Physician Duncan Ramirez MD History of Present Illness This is an 89 yo WM with history of lung ca s/p RML lobectomy with reoccurrence in right adrenal requiring Whipple procedure, treated for influenza a few weeks back with Tamiflu who presented to [facility] ED yesterday with fever and cough and found to be hypotensive with new onset atrial fib and elevated WBC. He was given digoxin 0.5mg IV x 1 in ED, troponins negative. He was transferred to [facility] [place] with presumed septic shock of unknown source. Currently he denies chest pain, SOB or palpitations. He is in NSR, resting comfortably and is alert and oriented x 3. (Zandra Gill) Review of Systems Consitutional: COMPLAINS OF: Fatigue, Fever, DENIES: Chills, Weight gain, Weight loss Respiratory: COMPLAINS OF: Cough, Snoring, Sputum production, DENIES: See HPI , Shortness of breath, Wheezing Cardiovascular: COMPLAINS OF: See HPI, DENIES: Chest pain, Palpitations, Syncope, Tachycardia Gastrointestinal: COMPLAINS OF: Change in bowel habits, Reflux, Bloody stools, Melena, DENIES: Nausea, Vomiting (Zandra Gill) Past Family Social History Allergies: Coded Allergies: Penicillin (Verified Allergy, Mild, DENIES ALLERGY TO PCN, 03/09/16) PATIENT STATES HE HAD A TEST AND [facility] STATES HE IS NOT ALLERGIC TO PENICILLIN. 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, in remission COPD CAD Hiatal hernia GERD Hypertension Osteoarthritis Past Surgical History Past Surgical History Whipple procedure in 2011 Right eye surgery in 2006 Bilateral inguinal hernia repair Right middle lobe lobectomy 2008 Reported Medications Xopenex Neb (Levalbuterol HCl) 0.31 Mg/3 Ml Neb 0.31 Mg NEB DAILY Spiriva Handihaler (Tiotropium Inh) 18 Mcg Cap 18 Mcg INH DAILY 1 capsule = 18 mcg Protonix (Pantoprazole Sodium) 40 Mg Tab 40 Mg PO DAILY Protonix (Pantoprazole Sodium) 20 Mg Tab 20 Mg PO DAILY Multivitamin Adults (Multiple Vitamins W/ Minerals) 1 Tab 1 Tab PO DAILY Losartan-Hydrochlorothiazide 100-12.5 Mg Tab 1 Tab PO DAILY Atorvastatin (Atorvastatin Calcium) 20 Mg Tab 20 Mg PO DAILY Active Ordered Medications Current Medications Medications (Trade) Dose Ordered Sig/Balaji Route Start Time Stop Time Status Last Admin (Zofran Inj) 4 mg Q6H PRN IV 03/09/16 17:15 (Tylenol) 650 mg Q4H PRN PO 03/09/16 17:15 (NS Flush) 2 ml BID IVF 03/09/16 21:00 03/09/16 21:46 IV Flush 2 ml 2 ml UNSCH PRN IVF 03/09/16 17:15 (NS 1000 ml Inj) 1,000 ml @ 84 mls/hr [id number] IV 03/09/16 16:57 03/10/16 04:52 (NS Flush) 2 ml UNSCH PRN IV FLUSH 03/09/16 17:00 (NS Flush) 2 ml BID IV FLUSH 03/09/16 21:00 03/09/16 21:45 (Protonix Inj) 40 mg DAILY IV 03/10/16 09:00 03/10/16 08:17 (Lovenox Inj) 30 mg Q24H SQ 03/09/16 18:00 03/09/16 21:45 Miscellaneous Information 1 [id number] XX 03/09/16 17:00 (Chlorhexidine 2% Cloth) 3 pack Taper DAILY@04 TOP 03/10/16 04:00 03/06/17 03:59 03/10/16 00:23 (Chlorhexidine 2% Cloth) 3 pack UNSCH PRN TOP 03/09/16 17:00 (Lipitor) 20 mg DAILY PO 03/10/16 09:00 Tiotropium Clayton 18 mcg 18 mcg DAILY INH 03/10/16 09:00 Pharmacy Profile Note 0 ml @ 0 mls/hr UNSCH OTHER 03/09/16 17:15 Aztreonam 1000 mg/ Sodium Chloride 100 ml @ 200 mls/hr Q8H IV 03/10/16 01:00 03/10/16 08:18 Vancomycin HCl 1000 mg/Sodium Chloride 250 ml @ 250 mls/hr Q24H IV 03/10/16 16:00 (Cardizem Inj/NS Inj) 125 ml @ 0 mls/hr TITRATE IV 03/09/16 17:45 Miscellaneous Information SPECIFIC LAB TO BE DRAWN:VANCOMYCIN TROUGH DATE TO... ONCE ONCE XX 03/13/16 15:45 03/13/16 15:46 (Levophed-Dextrose Drip) 250 ml @ 0 mls/hr TITRATE IV 03/09/16 18:30 03/09/16 18:58 Terbutaline Sulfate 1 mg 1 mg UNSCH PRN SQ 03/09/16 18:30 (Zithromax Inj/ NS 250 ml Inj) 250 ml @ 250 mls/hr Q24H IV 03/10/16 02:00 03/10/16 03:06 Family History Reviewed and found to be noncontributory to the patient's acute illness. Social History drinks 1 drink daily, denies tob or DOA. (Zandra Gill) Physical Exam Vital Signs Vital Signs Date Time Temp Pulse Resp B/P Pulse Ox O2 Delivery O2 Flow Rate FiO2 03/10/16 08:00 82 03/10/16 08:00 98.0 85 22 105/54 98 03/10/16 07:44 98.0 85 22 105/54 98 03/10/16 06:00 82 03/10/16 04:00 79 03/10/16 04:00 97.8 79 31 98/56 97 03/10/16 02:00 79 03/10/16 00:00 92 03/10/16 00:00 98.2 92 30 100/55 96 03/09/16 22:00 106 03/09/16 20:00 120 03/09/16 20:00 99.9 120 31 101/54 96 03/09/16 19:55 99.9 120 20 117/60 95 03/09/16 19:30 122 24 102/62 97 Nasal Cannula 2 03/09/16 19:25 119 21 104/58 95 Nasal Cannula 2 03/09/16 19:20 119 24 106/65 97 Nasal Cannula 03/09/16 19:15 125 21 109/64 97 Nasal Cannula 2 03/09/16 19:10 121 19 110/64 98 Nasal Cannula 2 03/09/16 19:05 117 21 102/58 98 Nasal Cannula 2 03/09/16 18:50 118 20 99/61 98 2 03/09/16 18:28 118 20 85/50 97 Nasal Cannula 2 03/09/16 17:27 96 21 03/09/16 17:25 99.7 132 22 77/47 95 Room Air 03/09/16 16:32 135 22 115/66 96 Room Air 03/09/16 16:20 145 22 113/58 96 Room Air 03/09/16 15:54 142 20 90/49 97 03/09/16 15:10 100 Nasal Cannula 2 03/09/16 15:10 100 Nasal Cannula 2 03/09/16 15:10 100 Nasal Cannula 2 03/09/16 15:05 97.8 99 20 100/70 100 Physical Exam GENERAL: SKIN: Warm and dry. HEAD: Atraumatic. Normocephalic. NECK: Trachea midline. No JVD. CARDIOVASCULAR: Regular rate and rhythm. RESPIRATORY: Tachypneic, No accessory muscle use. Coarse breath sounds bilaterally. GASTROINTESTINAL: Abdomen soft, non-tender, nondistended. MUSCULOSKELETAL: Extremities without clubbing, cyanosis, or edema. No obvious deformities. NEUROLOGICAL: Awake and alert. No obvious cranial nerve deficits. PSYCHIATRIC: Appropriate mood and affect; insight and judgment normal. Laboratory Laboratory Tests Test 03/09/16 03/09/16 03/09/16 03/09/16 15:15 15:30 17:50 18:29 White Blood Count 13.3 Red Blood Count 4.02 Hemoglobin 11.7 Hematocrit 35.1 Mean Corpuscular Volume 87.4 Mean Corpuscular Hemoglobin 29.1 Mean Corpuscular Hemoglobin 33.3 Concent Red Cell Distribution Width 12.8 Platelet Count 712 Mean Platelet Volume 6.9 Neutrophils (%) (Auto) 93.4 Lymphocytes (%) (Auto) 3.8 Monocytes (%) (Auto) 0.4 Eosinophils (%) (Auto) 0.2 Basophils (%) (Auto) 2.2 Neutrophils # (Auto) 12.4 Lymphocytes # (Auto) 0.5 Monocytes # (Auto) 0.1 Eosinophils # (Auto) 0.0 Basophils # (Auto) 0.3 CBC Comment DIFF FINAL Differential Comment Prothrombin Time 13.1 Prothromb Time International 1.2 Ratio Activated Partial 27.1 Thromboplast Time Sodium Level 138 Potassium Level 4.3 Chloride Level 101 Carbon Dioxide Level 21.3 Anion Gap 16 Blood Urea Nitrogen 37 Creatinine 1.50 Estimat Glomerular Filtration 44 Rate Random Glucose 135 Calcium Level 8.1 Phosphorus Level 2.5 Magnesium Level 1.4 Total Bilirubin 0.9 Aspartate Amino Transf 24 (AST/SGOT) Alanine Aminotransferase 28 (ALT/SGPT) Alkaline Phosphatase 282 Total Creatine Kinase 15 Troponin I LESS THAN 0.02 Total Protein 7.3 Albumin 1.8 Lipase 33 Thyroid Stimulating Hormone 1.370 3rd Gen Lactic Acid Level 4.8 2.3 Blood Gas Puncture Site RT RADIAL Blood Gas Patient Temperature 98.6 Blood Gas HCO3 20 Blood Gas Base Excess -3.3 Blood Gas Oxygen Saturation 96 Arterial Blood pH 7.47 Arterial Blood Partial 27 Pressure CO2 Arterial Blood Partial 88 Pressure O2 Arterial Blood Oxygen Content 14.1 Arterial Blood 1.2 Carboxyhemoglobin Arterial Blood Methemoglobin 1.5 Blood Gas Hemoglobin 10.4 Oxygen Delivery Device NASAL CANNULA Blood Gas Liter Flow 2 Blood Gas Inspired Oxygen 28 Test 03/10/16 03:35 White Blood Count 46.8 Red Blood Count 3.15 Hemoglobin 9.1 Hematocrit 27.7 Mean Corpuscular Volume 87.9 Mean Corpuscular Hemoglobin 28.9 Mean Corpuscular Hemoglobin 32.9 Concent Red Cell Distribution Width 13.8 Platelet Count 491 Mean Platelet Volume 6.6 Neutrophils (%) (Auto) Lymphocytes (%) (Auto) Monocytes (%) (Auto) Eosinophils (%) (Auto) Basophils (%) (Auto) Neutrophils # (Auto) Lymphocytes # (Auto) Monocytes # (Auto) Eosinophils # (Auto) Basophils # (Auto) CBC Comment AUTO DIFF Differential Total Cells 100 Counted Neutrophils % (Manual) 96 Band Neutrophils % 2 Lymphocytes % 2 Neutrophils # (Manual) 45.9 Differential Comment FINAL DIFF MANUAL Platelet Estimate HIGH Platelet Morphology Comment NORMAL Red Cell Morphology Comment NORMAL Sodium Level 139 Potassium Level 4.4 Chloride Level 107 Carbon Dioxide Level 21.6 Anion Gap 10 Blood Urea Nitrogen 36 Creatinine 1.49 Estimat Glomerular Filtration 45 Rate Random Glucose 156 Lactic Acid Level 1.1 Calcium Level 7.4 Protein Corrected Calcium 8.2 Magnesium Level 1.6 Total Bilirubin 0.4 Aspartate Amino Transf 18 (AST/SGOT) Alanine Aminotransferase 23 (ALT/SGPT) Alkaline Phosphatase 167 Total Protein 5.7 Albumin 1.5 Date/Time Procedure Status Source Growth 03/09/16 16:20 Influenza Types A,B Antigen ([facility]) - Final Complete Nasal Washing NEGATIVE FOR FLU A AND B ANTIGEN.... 03/09/16 15:30 Aerobic Blood Culture Received Blood Peripheral Pending 03/09/16 15:30 Anaerobic Blood Culture Received Blood Peripheral Pending (Zandra Gill) Result Diagram: 03/10/16 0335 03/10/16 0335 Imaging Last Impressions Chest X-Ray 03/10/16 0000 Signed Impressions: Service Date/Time: Thursday, March 10, 2016 04:39 - CONCLUSION: No significant change. Guzman Cifuentes MD Abdomen/Pelvis CT 03/09/16 1700 Signed Impressions: Service Date/Time: Wednesday, March 09, 2016 16:57 - CONCLUSION: 1. Apparent Whipple with Oscar-en-Y reconstruction of a bile duct. There is portal air evident. 2. There is adenopathy in the mj hepatis as well as in the retroperitoneum. The largest of these nodes measure 2 cm and are suspicious for neoplastic nodes. Rosas Ledezma MD FACR CT Angiography 03/09/16 0000 Signed Impressions: Service Date/Time: Wednesday, March 09, 2016 16:57 - CONCLUSION: 1. Minimal linear scarring or atelectasis in the right hemithorax with no confluent infiltrate or pulmonary embolus. 2. Pneumobilia which may be related to a prior cholecystectomy. 3. Cystic structure just medial to and possibly involving the right hepatic lobe. Findings are very nonspecific and include entities such as pseudocyst, hematoma, abscess or cystic mass lesion. Please see CT scan of the abdomen for further characterization. Jin Damon MD (Zandra Gill) Assessment and Plan Problem List: (1) Atrial fibrillation with RVR Assessment and Plan This is an 89 yo WM with no apparent cardiac history, with hx of lung ca RML lobectomy and s/p Whipple procedure who presented to [facility] ED yesterday with cough and fever; found to be hypotensive with elevated WBC and in new onset atrial fib. He was given digoxin 0.5 IV x 1 in ED and transferred to [facility] [place] in presumed septic shock of unknown source. He is currently resting comfortably , A&O x 3. Afib- currently in NSR, tachypneic and rate controlled on Cardizem 125. BP remains hypotensive 98/56. Hgb 9, WBC 46, creat 1.49, calcium 7.4 TSH and echo are pending. (Zandra Gill) Assessment and Plan paroxysmal afib likely due to increased adrenergic tone. now NSR. cont low dose CCB. Not anticoag candidate at this time. consider asa 325 will sign off call with further questions (Wade Chavira MD) Zandra Gill Mar 10, 2016 09:11 Wade Chavira MD Mar 10, 2016 14:48
[2016-03-10 10:09] LABS: FREE T4 1.98 NG/DL (0.76-1.46)
--- NOTE | 2016-03-10 13:40 | EKG ---
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 Abnormal ECG PREVIOUS TRACING : 11/22/2012 09.26 DOCTOR: Bruce Del Angel Interpretating Date/Time 03/10/2016 13:38:28
[2016-03-10 14:01] LABS: HEMATOCRIT 28.1 % (39.0-51.0); MEAN CELL VOLUME 87.7 FL (80.0-100.0); MEAN CORPUSCULAR HEMOGLOBIN 29.4 PG (27.0-34.0); MEAN CORPUSCULAR HGB CONC 33.6 % (32.0-36.0); PLATELET COUNT 510 TH/MM3 (150-450); RED BLOOD COUNT 3.21 MIL/MM3 (4.50-5.90); RED CELL DISTRIBUTION WIDTH 13.7 % (11.6-17.2); WHITE BLOOD COUNT 34.3 TH/MM3 (4.0-11.0)
[2016-03-10 14:02] LABS: REVIEW FLAG FINAL
[2016-03-10] MEDS: VANCOMYCIN INJ 1,250 MG in SODIUM CHLOR 0.9% 250 ML INJ 250 ML IV SCH (16:00)
[2016-03-10] MEDS ORDERED: VANCOMYCIN 1,000 MG/NS 250 ML IV SCH ×2 (16:00)
--- NOTE | 2016-03-10 17:37 | MB ---
cc: HADLEY CONTI MD DATE OF CONSULTATION: 03/10/[address] Hinds. REASON FOR CONSULTATION: Septic shock. HISTORY OF PRESENT ILLNESS This is a 89-year-old white male who presented to [place] emergency department with fever and cough and chills. The patient describes to me that he had discharge and chills prior to being seen in the emergency department. He was found to be hypotensive and was also found to have new onset atrial fibrillation. His white count was slightly elevated initially. The patient was admitted to the hospital for evaluation. Cultures were taken including blood cultures which has no growth so far. Chest x-ray was performed and showed no acute process. The patient recently was treated for influenza with Tamiflu. He completed the treatment and was feeling okay. After admission his temperature alyssa to 99.9 degrees yesterday. Today the temperature is normal range. He tells me that he feels fine but he feels very weak. His white blood cell count increased up to 46.8 today. This patient has also renal insufficiency. A Ames catheter was placed and his urine output improved and he has been receiving intravenous fluids. The patient has a history of lung cancer treated with lobectomy, and also has recurrence in the right adrenal gland after a Whipple procedure. He is noted to be in remission for 5 years. 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 ALLERGIES THE PATIENT IS REPORTEDLY ALLERGIC TO PENICILLIN HOWEVER, HE WAS TESTED AT THE [facility] AND REPORTS THAT HE IS NOT ALLERGIC TO PENICILLIN. MEDICATIONS 1. Vancomycin 2. Azithromycin. 3. aztreonam 4. Lipitor 5. Protonix. 6. Albuterol neb. SOCIAL HISTORY No tobacco, daily alcohol. No illicit drugs. FAMILY HISTORY One alcoholic drink per day. No illicit drugs. FAMILY HISTORY Noncontributory. REVIEW OF SYSTEMS GENERAL: Significant for weakness and fever and chills. HEAD, EYES, EARS, NOSE, AND THROAT: No visual blurring or difficulty with vision. No nose bleeds. No difficulty swallowing or soreness of the throat. NECK: No neck swelling or neck pain. CARDIOVASCULAR SYSTEM: No palpitation or chest pain. RESPIRATORY: Positive for cough. No chest pain or shortness of breath. GENITOURINARY: No urgency, frequency or dysuria. GASTROINTESTINAL: No nausea or vomiting or abdominal pain or diarrhea. ENDOCRINE: No polyuria or polydipsia. INTEGUMENTARY: No skin rash or itching. HEMATOLOGIC: No easy bruising or bleeding. MUSCULOSKELETAL: No muscle aches or pains. NEUROLOGIC: No problems with coordination. PHYSICAL EXAMINATION: IN GENERAL: This is a well-developed male who is in no acute distress. He is awake and alert and oriented. VITAL SIGNS: Include temperature of 98.2 blood pressure 102/59, respirations 22, heart rate 86. HEAD, EYES, EARS, NOSE, AND THROAT: Head atraumatic. Extraocular movements grossly intact. No icterus. No conjunctival erythema. Oropharynx moist mucosa without lesions. NECK: Supple without adenopathy or swelling. LUNGS: Has slight rhonchi at the bases. HEART: Regular S1-S2 without murmurs. ABDOMEN: Bowel sounds present, soft, nontender. No hepatosplenomegaly. No masses palpable. RECTUM: Rectal: Not performed. EXTREMITIES: No clubbing or cyanosis or edema. SKIN: No rash. The skin has a bronze Hue. NEUROLOGIC: Nonfocal. PSYCHIATRIC: The patient calm and cooperative and pleasant. LABORATORY DATA WBC 34.3, platelets 510, hemoglobin 9.4, creatinine 1.50, BUN 37, estimated GFR 44, sodium 138, AST 24, ALT 28, alk phos 228, influenza A and B test negative. CT Abdomen/pelvis Shows adenopathy in the mj hepatis as well as in the retroperitoneum Chest x-ray Negative. IMPRESSION: Septic shock. Leukocytosis. Acute Kidney disease. RECOMMENDATIONS 1. Continue current antibiotic treatment with vancomycin, azithromycin and aztreonam and monitor blood cultures 2. Monitor white blood cell count. No clear source for the leukocytosis. However, could have been due to sepsis in patient who had chills and fever. 3. Follow clinical status. 4. CT scan results from the pelvis suggest possible suspicion for neoplastic nodes in patient with adenopathy in the retroperitoneum reported on CT scan of the abdomen and pelvis. Thank you for this consultation. The patient's progress will be monitored and further recommendations will be given upon followup if necessary. Hadley F. Dontfraid, MD FD/seng /4:05 PM /5:25 PM [email or web address]
[2016-03-10] MEDS: ENOXAPARIN SODIUM 30 MG/0.3 ML SYRINGE SQ SCH (18:00)
[2016-03-11] VITALS (14 sets, daily range): BP systolic 104–129; BP diastolic 56–71; PULSE 83–115; RESP 16–20; TEMP 98.1–98.8; O2SAT 94–97
[2016-03-11] MEDS: AZTREONAM INJ 1,000 MG in SODIUM CHLORIDE 0.9% INJ 100 ML IV SCH ×3 (01:18→17:38)
[2016-03-11] MEDS: AZITHROMYCIN INJ 500 MG in SODIUM CHLOR 0.9% 250 ML INJ 250 ML IV SCH (02:19)
[2016-03-11] MEDS: CHLORHEXIDINE GLUCONATE 2 % 1 PACK (2 CLOTHS) TOP SCH ×2 (04:00→23:14)
[2016-03-11] MEDS: SODIUM CHLOR 0.9% 1000 ML INJ 1,000 ML IV SCH ×3 (04:42→23:53)
[2016-03-11] MEDS: RESP: ALBUTEROL 0.63 MG/3 ML NEB (SCH) NEB (07:50)
[2016-03-11] MEDS: PANTOPRAZOLE SODIUM 40 MG VIAL IV SCH (08:22)
[2016-03-11] MEDS: SODIUM CHLORIDE 0.9% FLUSH 5 ML FLUSH IV FLUSH SCH ×2 (08:22→19:49)
[2016-03-11] MEDS: ATORVASTATIN 20 MG TAB PO SCH (08:22)
[2016-03-11] MEDS: SODIUM CHLORIDE 0.9% FLUSH 5 ML FLUSH IVF SCH ×2 (08:23→19:49)
[2016-03-11] MEDS: TIOTROPIUM BROMIDE 18 MCG INH INH SCH (09:00)
--- NOTE | 2016-03-11 10:36 | PD.CONS ---
HPI Service [facility] Consult Requested By Dr. 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 Pt. had presented initially to his PCP a few weeks ago with fever, chills, cough and was diagnosed with Influenza A and underwent full course of treatment with Tamiflu. Patient presented to the emergency room on 03/09/2016 with worsening fever, chills and cough to the [facility] emergency department. On presentation, he was hypotensive, in new-onset A. Fib RVR, with elevated wbc. Despite this, his room air spo2 was 96%. He vehemently denies abdominal pain, nausea, vomiting, and he continues to tolerate a diet. He did note 2-3 loose stools today, but this was normal and usual for him, and he would not classify this as diarrhea for him. No blood in his stool, dark tarry stools. He had a CT pulmonary angiogram that was negative for PE and negative for acute alveolar process. He had a CT abd/pelvis which demonstrated small amount of pneumobilia thought to be secondary to his prior Whipple's procedure. [facility] spoke with the on- call radiologist who re-examined the CT abd/pelvis and thought the dilated loop of small bowel adjacent to the liver could possibly be related to a closed-loop bowel obstruction radiographically. For the afib, patient was given 0.5mg digoxin iv x 1 and started on norepinephrine for hypotension. A femoral CVL was placed in the emergency department. His initial lactate was 4.7 in the ED. He is transferred to the ICU at [facility] for work-up and management of presumed septic shock, of unknown source. Pt. was admitted to the ICU under the applied computer science professor services. He was fluid resuscitated, cultures were obtained and empiric antibiotics were started. Repeat lactate down to 2.5. Patient is hemodynamically stable, he is off pressor support. Infectious disease has been consulted for antibiotic management. Blood cultures are showing gram-positive cocci. WBC significantly elevated, up to 46.8, today is 28.3. Has a mild cough, some sputum that is yellow, no chest pain. He has had no further episodes of atrial fibrillation, sinus rhythm on the monitor. Echocardiogram is currently pending. He was evaluated by cardiology, no anticoagulation is recommended. Creatinine is improving,1.3 today. Patient indicates that he follows up regularly at the [facility], had imaging studies done in September 2015 and was told his cancer is in remission. Locally he does see Dr. Garg at least once a year, he last saw her January 2016. Patient was ambulated around the unit today, he is weak but otherwise he is improving. Hospitalist services are requested for medical management. (Adenike Lopez) Review of Systems Constitutional: COMPLAINS OF: Fever, Chills, DENIES: Diaphoretic episodes, Fatigue, Weight gain, Weight loss, Dizziness, Change in appetite, Night Sweats Endocrine: DENIES: Heat/cold intolerance, Polydipsia, Polyuria, Polyphagia Eyes: DENIES: Blurred vision, Diplopia, Eye inflammation, Eye pain, Vision loss , Photosensitivity, Double Vision Ears, nose, mouth, throat: DENIES: Tinnitus, Hearing loss, Vertigo, Nasal discharge, Oral lesions, Throat pain, Hoarseness, Ear Pain, Running Nose, Epistaxis, Sinus Pain, Toothache, Odynophagia Respiratory: COMPLAINS OF: Cough, Sputum production, DENIES: Apneas, Snoring, Wheezing, Hemoptysis, Shortness of breath Cardiovascular: DENIES: Chest pain, Palpitations, Syncope, Dyspnea on Exertion , PND, Lower Extremity Edema, Orthopnea, Claudication Gastrointestinal: DENIES: Abdominal pain, Black stools, Bloody stools, Constipation, Diarrhea, Nausea, Vomiting, Difficulty Swallowing, Anorexia Genitourinary: DENIES: Sexual dysfunction, Urinary frequency, Urinary incontinence, Urgency, Hematuria, Dysuria, Nocturia, Penile Discharge, Testicular Pain, Testicular Swelling Musculoskeletal: DENIES: Joint pain, Muscle aches, Stiffness, Joint Swelling, Back pain, Neck pain Integumentary: DENIES: Abnormal pigmentation, Nail changes, Pruritus, Rash Hematologic/lymphatic: DENIES: Bruising, Lymphadenopathy Neurologic: DENIES: Abnormal gait, Headache, Localized weakness, Paresthesias, Seizures, Speech Problems, Tremor, Poor Balance Psychiatric: DENIES: Anxiety, Confusion, Mood changes, Depression, Hallucinations, Agitation, Suicidal Ideation, Homicidal Ideation, Delusions ( Adenike Lopez) Past Family Social History Past Medical History Lung cancer, status post right middle lobectomy Recurrence of cancer, right adrenal and pancreas in 2010, status post Whipple procedure at [facility] COPD Hiatal hernia Hypertension Heartburn GERD Osteoarthritis Past Surgical History Right middle lobectomy 2009 Whipple procedure 2010 Eye surgery 2007 Bilateral Hernia repair Bilateral hand surgery for Dupuytren contractures. Bronchoscopy Reported Medications Reported Meds & Active Scripts Active Reported Xopenex Neb (Levalbuterol HCl) 0.31 Mg/3 Ml Neb 0.31 Mg NEB DAILY Spiriva Handihaler (Tiotropium Inh) 18 Mcg Cap 18 Mcg INH DAILY 1 capsule = 18 mcg Protonix (Pantoprazole Sodium) 40 Mg Tab 40 Mg PO DAILY Protonix (Pantoprazole Sodium) 20 Mg Tab 20 Mg PO DAILY Multivitamin Adults (Multiple Vitamins W/ Minerals) 1 Tab 1 Tab PO DAILY Losartan-Hydrochlorothiazide 100-12.5 Mg Tab 1 Tab PO DAILY Atorvastatin (Atorvastatin Calcium) 20 Mg Tab 20 Mg PO DAILY (Adenike Lopez) Allergies: Coded Allergies: Penicillin (Verified Allergy, Mild, DENIES ALLERGY TO PCN, 03/09/16) PATIENT STATES HE HAD A TEST AND [facility] STATES HE IS NOT ALLERGIC TO PENICILLIN. VERIFIED 11/23/12 Active Ordered Medications Inpatient Medications Acetaminophen (Tylenol) 650 mg Q4H PRN PO Temp>101F, Headache; Start 03/09/16 at 17:15 Albuterol Sulfate 0.63 mg 0.63 mg DAILY NEB NEB Last administered on 07:50; Start 03/10/16 at 08:00 Albuterol/ Ipratropium (Duoneb Neb) 1 ampule Q4HR NEB PRN INH WHEEZING Last administered on 03/10/16 09:02; Start 03/09/16 at 20:00 Atorvastatin Calcium (Lipitor) 20 mg DAILY PO Last administered on 03/11/16 08 :22; Start 03/10/16 at 09:00 Azithromycin 500 mg/Sodium Chloride 250 ml @ 250 mls/hr Q24H IV Last administered on 03/11/16 02:19; Start 03/10/16 at 02:00 Aztreonam 1000 mg/ Sodium Chloride 100 ml @ 200 mls/hr Q8H IV Last administered on 03/11/16 08:21; Start 03/10/16 at 01:00 Aztreonam/Sodium Chloride (Azactam Inj/NS Inj) 100 ml @ 200 mls/hr ONCE ONCE IV Last administered on 03/09/16 16:16; Start 03/09/16 at 16:15; Stop at 16:44; Status DC Chlorhexidine Gluconate (Chlorhexidine 2% Cloth) 3 pack UNSCH PRN TOP HYGIENIC CARE; Start 03/09/16 at 17:00 Digoxin 0.5 mg 0.5 mg ONCE ONCE IV PUSH Last administered on 03/09/16 18:22; Start 03/09/16 at 17:45; Stop 03/09/16 at 17:46; Status DC Diltiazem HCl/ Sodium Chloride (Cardizem Inj/NS Inj) 125 ml @ 0 mls/hr TITRATE IV ; Start 03/09/16 at 17:45 Enoxaparin Sodium (Lovenox Inj) 30 mg Q24H SQ Last administered on 03/10/16 18 :00; Start 03/09/16 at 18:00 IV Flush (NS Flush) 2 ml BID IV FLUSH Last administered on 03/11/16 08:22; Start 03/09/16 at 21:00 Magnesium Sulfate/ Dextrose 100 ml @ 100 mls/hr ONCE ONCE IV Last administered on 03/09/16 21:46; Start 03/09/16 at 17:45; Stop 03/09/16 at 18:44 ; Status DC Miscellaneous Information SPECIFIC LAB TO BE DRAWN:VANCOMYCIN TROUGH DATE TO... ONCE ONCE XX ; Start 03/13/16 at 15:45; Stop 03/13/16 at 15:46 Norepinephrine Bitartrate (Levophed-Dextrose Drip) 250 ml @ 0 mls/hr TITRATE IV Last administered on 03/09/16 18:58; Start 03/09/16 at 18:30 Ondansetron HCl (Zofran Inj) 4 mg Q6H PRN IV NAUSEA OR VOMITING; Start at 17:15 Pantoprazole Sodium (Protonix Inj) 40 mg DAILY IV Last administered on 08:22; Start 03/10/16 at 09:00 Pharmacy Profile Note 0 ml @ 0 mls/hr UNSCH OTHER ; Start 03/09/16 at 17:15 Sodium Chloride (NS 1000 ml Inj) 1,000 ml @ 999 mls/hr BOLUS ONCE IV Last administered on 03/09/16t 18:24; Start 03/09/16 at 17:45; Stop 03/09/16 at 18:45 ; Status DC Terbutaline Sulfate 1 mg 1 mg UNSCH PRN SQ For Extravasation; Start 03/09/16 at 18:30 Tiotropium [place] (Spiriva Inh) 18 mcg DAILY INH ; Start 03/10/16 at 09:00 Vancomycin HCl 1000 mg/Sodium Chloride 250 ml @ 250 mls/hr Q24H IV ; Start at 16:00; Stop 03/10/16 at 16:00; Status DC Vancomycin HCl/ Sodium Chloride (Vancomycin Inj/ NS 250 ml Inj) 250 ml @ 250 mls/hr Q24H IV Last administered on 03/10/16 16:00; Start 03/10/16 at 16:00 Family History Reviewed, noncontributory Social History Patient lives at home with his , has grown children. He he drinks a double shot of whiskey every day, no tobacco abuse, no substance abuse. (Adenike Lopez) Physical Exam Vital Signs Vital Signs Date Time Temp Pulse Resp B/P Pulse Ox O2 Delivery O2 Flow Rate FiO2 03/11/16 08:00 98.8 100 18 126/63 96 03/11/16 08:00 100 03/11/16 07:52 96 03/11/16 06:00 91 03/11/16 04:00 98.5 92 16 126/59 96 03/11/16 04:00 88 03/11/16 02:00 87 03/11/16 00:00 83 03/11/16 00:00 98.1 83 16 117/56 97 03/10/16 22:00 80 03/10/16 20:00 84 03/10/16 20:00 98.3 84 24 97 03/10/16 19:57 98 Nasal Cannula 2.00 03/10/16 18:19 89 03/10/16 16:00 98.3 85 22 102/58 97 03/10/16 14:00 86 03/10/16 12:21 88 03/10/16 12:21 98.2 88 22 102/59 97 Physical Exam GENERAL: This is a well-nourished, well-developed patient, in no apparent distress. SKIN: No rashes, ecchymoses or lesions. Cool and dry. HEAD: Atraumatic. Normocephalic. No temporal or scalp tenderness. EYES: Pupils equal round and reactive. Extraocular motions intact. No scleral icterus. No injection or drainage. ENT: Nose without bleeding, purulent drainage or septal hematoma. Throat without erythema, tonsillar hypertrophy or exudate. Uvula midline. Airway patent. NECK: Trachea midline. No JVD or lymphadenopathy. Supple, nontender, no meningeal signs. CARDIOVASCULAR: Regular rate and rhythm without murmurs, gallops, or rubs. RESPIRATORY: Minimal ronchi bibasilar, diminished GASTROINTESTINAL: Abdomen soft, non-tender, nondistended. No hepato-splenomegaly , or palpable masses. No guarding. : carranza with yellow urine MUSCULOSKELETAL: Extremities without clubbing, cyanosis, or edema. No joint tenderness, effusion, or edema noted. No calf tenderness. Negative Homans sign bilaterally. NEUROLOGICAL: Awake and alert. Cranial nerves II through XII intact. Motor and sensory grossly within normal limits. Five out of 5 muscle strength in all muscle groups. Normal speech. Laboratory Laboratory Tests Test 03/10/16 13:05 White Blood Count 34.3 Red Blood Count 3.21 Hemoglobin 9.4 Hematocrit 28.1 Mean Corpuscular Volume 87.7 Mean Corpuscular Hemoglobin 29.4 Mean Corpuscular Hemoglobin 33.6 Concent Red Cell Distribution Width 13.7 Platelet Count 510 Mean Platelet Volume 6.8 Date/Time Procedure Status Source Growth 03/09/16 16:20 Influenza Types A,B Antigen ([place]) - Final Complete Nasal Washing NEGATIVE FOR FLU A AND B ANTIGEN.... 03/09/16 15:30 Aerobic Blood Culture - Preliminary Resulted Blood Peripheral NO GROWTH IN 1 DAY 03/09/16 15:30 Anaerobic Blood Culture - Preliminary Resulted Blood Peripheral NO GROWTH IN 1 DAY (Adenike Lopez) Result Diagram: 03/10/16 1305 03/10/16 0335 Imaging Last Impressions Chest X-Ray 03/10/16 0000 Signed Impressions: Service Date/Time: Thursday, March 10, 2016 04:39 - CONCLUSION: No significant change. Guzman Cifuentes MD Abdomen/Pelvis CT 03/09/16 1700 Signed Impressions: Service Date/Time: Wednesday, March 09, 2016 16:57 - CONCLUSION: 1. Apparent Whipple with Oscar-en-Y reconstruction of a bile duct. There is portal air evident. 2. There is adenopathy in the mj hepatis as well as in the retroperitoneum. The largest of these nodes measure 2 cm and are suspicious for neoplastic nodes. Rosas Ledezma MD FACR CT Angiography 03/09/16 0000 Signed Impressions: Service Date/Time: Wednesday, March 09, 2016 16:57 - CONCLUSION: 1. Minimal linear scarring or atelectasis in the right hemithorax with no confluent infiltrate or pulmonary embolus. 2. Pneumobilia which may be related to a prior cholecystectomy. 3. Cystic structure just medial to and possibly involving the right hepatic lobe. Findings are very nonspecific and include entities such as pseudocyst, hematoma, abscess or cystic mass lesion. Please see CT scan of the abdomen for further characterization. Jin Damon MD (Adenike Lopez) A/P Diagnosis: (1) Severe sepsis (2) Acute kidney injury (3) Atrial fibrillation with RVR (4) Hx of cancer of lung (5) hx adrenal and pancreatic cancer (6) hx whipple procedure (7) Leukocytosis (8) COPD (chronic obstructive pulmonary disease) (9) recent influenza Assessment and Plan Thank you for this consultation, we will assume medical care 89-year-old male with recent influenza, presented to emergency room with cough, fever, chills. Patient was found in septic shock, possibly secondary to pulmonary infection, with acute renal injury and lactic acidosis, require fluid resuscitation and pressor support. Blood cultures showing gram-positive cocci -Continue with antibiotics and follow cultures Infectious disease following patient Decrease IV fluids Lactic acid factor normal -Remains with significant leukocytosis, however improving, continue to monitor CBC. Lactic acid is down, no fever. Acute renal injury, secondary to sepsis, creatinine improving Continue with IV fluids Continue to monitor BMP Avoid nephrotoxic agents, NSAIDs, JANET inhibitor's Paroxysmal A. fib with RVR, now resolved, likely secondary to sepsis Cardiology has evaluated, no anticoagulation recommended Echo currently pending COPD, stable Continue with DuoNeb's as needed Hx of lung cancer with RML, recurrence in 2010 with adrenal and pancreatic cancer-had Whipple procedure at [place]. Follows up at [facility] and Dr. Garg, pt reports he is remission -monitor for now -Abdomen CT findings showed adenopathy in the mj hepatis as well as retroperitoneum, largest of nodes measuring 2 cm. Patient will need to follow- up with oncologist at [facility] Continue with Protonix for GI prophylaxis, Lovenox for DVT prophylaxis DC carranza catheter Physical therapy for evaluation and treatment Patient hemodynamically stable, can transfer out of the ICU to cardiac floor Case management consultation for discharge planning, may benefit from rehabilitation versus home with home health care Discharge planning in 1-2 days based on cultures and improvement in WBC. This patient was seen by myself and Dr. Pemberton, this consultation is written on his behalf (Adenike Lopez) Assessment and Plan pt is seen & Examined d/w PT & his at bedside d/w Adenike gorman w above cont current tx will f/u (Ember Pemberton MD) Problem Qualifiers (1) COPD (chronic obstructive pulmonary disease): Qualified Code: J44.9 - Chronic obstructive pulmonary disease, unspecified COPD type Adenike Lopez Mar 11, 2016 10:36 Ember Pemberton MD Mar 11, 2016 18:55
--- NOTE | 2016-03-11 13:16 | EC ---
Study Study Date:03/11/2016 STUDY CONCLUSIONS SUMMARY - Left ventricle: The cavity size was normal. Wall thickness was normal. Systolic function was normal. The estimated ejection fraction was in the range of 55% to 60%. Wall motion was normal; there were no regional wall motion abnormalities. - Left atrium: The atrium was mildly dilated. - Pulmonary arteries: PA peak pressure: 32mm Hg (S). If LV function is below 40, please consider prescribing an ACEI or ARB or document rationale for non-use. PROCEDURE DATA STUDY STATUS: Elective. Procedure: Transthoracic echocardiography. Image quality was good. Scanning was performed from the parasternal, apical, and subcostal acoustic windows. Study completion: The patient tolerated the procedure well. Transthoracic echocardiography. M-mode, complete 2D, complete spectral Doppler, and color Doppler. Patient status: Inpatient. CARDIAC ANATOMY LEFT VENTRICLE: The cavity size was normal. Wall thickness was normal. Systolic function was normal. The estimated ejection fraction was in the range of 55% to 60%. Wall motion was normal; there were no regional wall motion abnormalities. AORTIC VALVE: Trileaflet; normal thickness leaflets. Doppler: Transvalvular velocity was within the normal range. There was no stenosis. No regurgitation. AORTA: Aortic root: The aortic root was normal in size. MITRAL VALVE: Structurally normal valve. Doppler: Transvalvular velocity was within the normal range. There was no evidence for stenosis. No regurgitation. LEFT ATRIUM: The atrium was mildly dilated. RIGHT VENTRICLE: The cavity size was normal. Wall thickness was normal. PULMONIC VALVE: Doppler: Transvalvular velocity was within the normal range. There was no evidence for stenosis. No regurgitation. TRICUSPID VALVE: Structurally normal valve. Doppler: Transvalvular velocity was within the normal range. No regurgitation. PULMONARY ARTERY: The main pulmonary artery was normal-sized. Systolic pressure was within the normal range. RIGHT ATRIUM: The atrium was normal in size. PERICARDIUM: There was no pericardial effusion. SYSTEMIC VEINS: Inferior vena cava: The vessel was normal in size. BASIC MEASUREMENTS ADULT NORMAL Left ventricle LV internal dimension, ED, chordal level, 44.3 mm 43-52 PLAX LV posterior wall thickness, ED 8.49 mm IVS/LVPW ratio, ED 1 <1.3 Ventricular septum Septal thickness, ED 8.5 mm Left atrium Anterior-posterior dimension 36 mm Right ventricle RV internal dimension, ED, PLAX 25.2 mm 19-38 DOPPLER MEASUREMENTS ADULT NORMAL Main pulmonary artery Pressure, S *32 mm Hg =30 Mitral valve Peak E-wave velocity 65.3 cm/s Peak A-wave velocity 91 cm/s Peak E/A ratio 0.7 Tricuspid valve Regurgitant peak velocity 228 cm/s Peak RV-RA gradient, S 21 mm Hg Maximal regurgitant velocity 228 cm/s Systemic veins Estimated CVP 10 mm Hg Right ventricle RV pressure, S *32 mm Hg <30 LEGEND: Mean values are shown as u=mean value. Asterisk (*) barrientos values outside specified normal range. Prepared and signed by Wade Chavira [id number]
--- NOTE | 2016-03-11 14:01 | HHI.IDPN ---
Note Infectious Disease Note Patient feels okay. Up in bedside chair. No chills. Afebrile. D/W RN. Presented to [place] emergency department with fever and cough and chills. He was found to be hypotensive and was also found to have new onset atrial fibrillation. The patient recently was treated for influenza with Tamiflu. 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 ALLERGIES THE PATIENT IS REPORTEDLY ALLERGIC TO PENICILLIN HOWEVER, HE WAS TESTED AT THE [facility] AND REPORTS THAT HE IS NOT ALLERGIC TO PENICILLIN. MEDICATIONS Current Medications Medications (Trade) Dose Ordered Sig/Balaji Route PRN Reason Start Time Stop Time Status Last Admin Dose Admin Ondansetron HCl (Zofran Inj) 4 mg Q6H PRN IV NAUSEA OR VOMITING 03/09/16 17:15 Acetaminophen (Tylenol) 650 mg Q4H PRN PO Temp>101F, Headache 03/09/16 17:15 IV Flush (NS Flush) 2 ml BID IVF 03/09/16 21:00 03/11/16 08:23 IV Flush 2 ml 2 ml UNSCH PRN IVF FLUSH AFTER USING IV ACCESS 03/09/16 17:15 Sodium Chloride (NS 1000 ml Inj) 1,000 ml @ 84 mls/hr [id number] IV 03/09/16 16:57 03/11/16 04:42 IV Flush (NS Flush) 2 ml UNSCH PRN IV FLUSH FLUSH AFTER USING IV ACCESS 03/09/16 17:00 IV Flush (NS Flush) 2 ml BID IV FLUSH 03/09/16 21:00 03/11/16 08:22 Pantoprazole Sodium (Protonix Inj) 40 mg DAILY IV 03/10/16 09:00 03/11/16 08:22 Enoxaparin Sodium (Lovenox Inj) 30 mg Q24H SQ 03/09/16 18:00 03/10/16 18:00 Miscellaneous Information 1 Q361D XX 03/09/16 17:00 Chlorhexidine Gluconate (Chlorhexidine 2% Cloth) 3 pack Taper DAILY@04 TOP 03/10/16 04:00 03/06/17 03:59 03/10/16 00:23 Chlorhexidine Gluconate (Chlorhexidine 2% Cloth) 3 pack UNSCH PRN TOP HYGIENIC CARE 03/09/16 17:00 Atorvastatin Calcium (Lipitor) 20 mg DAILY PO 03/10/16 09:00 03/11/16 08:22 Tiotropium [place] 18 mcg 18 mcg DAILY INH 03/10/16 09:00 Pharmacy Profile Note 0 ml @ 0 mls/hr UNSCH OTHER 03/09/16 17:15 Aztreonam 1000 mg/ Sodium Chloride 100 ml @ 200 mls/hr Q8H IV 03/10/16 01:00 03/11/16 08:21 Diltiazem HCl/ Sodium Chloride (Cardizem Inj/NS Inj) 125 ml @ 0 mls/hr TITRATE IV 03/09/16 17:45 Miscellaneous Information SPECIFIC LAB TO BE DRAWN:VANCOMYCIN TROUGH DATE TO... ONCE ONCE XX 03/13/16 15:45 03/13/16 15:46 Norepinephrine Bitartrate (Levophed-Dextrose Drip) 250 ml @ 0 mls/hr TITRATE IV 03/09/16 18:30 03/09/16 18:58 Terbutaline Sulfate 1 mg 1 mg UNSCH PRN SQ For Extravasation 03/09/16 18:30 Azithromycin 500 mg/Sodium Chloride 250 ml @ 250 mls/hr Q24H IV 03/10/16 02:00 03/11/16 02:19 Vancomycin HCl/ Sodium Chloride (Vancomycin Inj/ NS 250 ml Inj) 250 ml @ 250 mls/hr Q24H IV 03/10/16 16:00 03/10/16 16:00 SOCIAL HISTORY No tobacco, daily alcohol. No illicit drugs. FAMILY HISTORY One alcoholic drink per day. No illicit drugs. FAMILY HISTORY Noncontributory. OBJ: Vital Signs Date Time Temp Pulse Resp B/P Pulse Ox O2 Delivery O2 Flow Rate FiO2 03/11/16 08:00 98.8 100 18 126/63 96 03/11/16 08:00 100 03/11/16 07:52 96 03/11/16 06:00 91 03/11/16 04:00 98.5 92 16 126/59 96 03/11/16 04:00 88 03/11/16 02:00 87 03/11/16 00:00 83 03/11/16 00:00 98.1 83 16 117/56 97 03/10/16 22:00 80 03/10/16 20:00 84 03/10/16 20:00 98.3 84 24 97 03/10/16 19:57 98 Nasal Cannula 2.00 03/10/16 18:19 89 03/10/16 16:00 98.3 85 22 102/58 97 03/10/16 14:00 86 Laboratory Tests Test 03/09/16 03/10/16 03/10/16 15:15 03:35 13:05 White Blood Count 13.3 TH/MM3 46.8 TH/MM3 34.3 TH/MM3 Red Blood Count 4.02 MIL/MM3 3.15 MIL/MM3 3.21 MIL/MM3 Hemoglobin 11.7 GM/DL 9.1 GM/DL 9.4 GM/DL Hematocrit 35.1 % 27.7 % 28.1 % Mean Corpuscular Volume 87.4 FL 87.9 FL 87.7 FL Mean Corpuscular Hemoglobin 29.1 PG 28.9 PG 29.4 PG Mean Corpuscular Hemoglobin 33.3 % 32.9 % 33.6 % Concent Red Cell Distribution Width 12.8 % 13.8 % 13.7 % Platelet Count 712 TH/MM3 491 TH/MM3 510 TH/MM3 Mean Platelet Volume 6.9 FL 6.6 FL 6.8 FL Neutrophils (%) (Auto) 93.4 % % Lymphocytes (%) (Auto) 3.8 % % Monocytes (%) (Auto) 0.4 % % Eosinophils (%) (Auto) 0.2 % % Basophils (%) (Auto) 2.2 % % Neutrophils # (Auto) 12.4 TH/MM3 TH/MM3 Lymphocytes # (Auto) 0.5 TH/MM3 TH/MM3 Monocytes # (Auto) 0.1 TH/MM3 TH/MM3 Eosinophils # (Auto) 0.0 TH/MM3 TH/MM3 Basophils # (Auto) 0.3 TH/MM3 TH/MM3 CBC Comment DIFF FINAL AUTO DIFF Differential Comment FINAL DIFF MANUAL Differential Total Cells 100 Counted Neutrophils % (Manual) 96 % Band Neutrophils % 2 % Lymphocytes % 2 % Neutrophils # (Manual) 45.9 TH/MM3 Platelet Estimate HIGH Platelet Morphology Comment NORMAL Red Cell Morphology Comment NORMAL Laboratory Tests Test 03/09/16 03/09/16 03/09/16 03/10/16 15:15 15:30 17:50 03:35 Sodium Level 138 MEQ/L 139 MEQ/L Potassium Level 4.3 MEQ/L 4.4 MEQ/L Chloride Level 101 MEQ/L 107 MEQ/L Carbon Dioxide Level 21.3 MEQ/L 21.6 MEQ/L Anion Gap 16 MEQ/L 10 MEQ/L Blood Urea Nitrogen 37 MG/DL 36 MG/DL Creatinine 1.50 MG/DL 1.49 MG/DL Estimat Glomerular Filtration 44 ML/MIN 45 ML/MIN Rate Random Glucose 135 MG/DL 156 MG/DL Calcium Level 8.1 MG/DL 7.4 MG/DL Phosphorus Level 2.5 MG/DL Magnesium Level 1.4 MG/DL 1.6 MG/DL Total Bilirubin 0.9 MG/DL 0.4 MG/DL Aspartate Amino Transf 24 U/L 18 U/L (AST/SGOT) Alanine Aminotransferase 28 U/L 23 U/L (ALT/SGPT) Alkaline Phosphatase 282 U/L 167 U/L Total Creatine Kinase 15 U/L Troponin I LESS THAN 0.02 NG/ML Total Protein 7.3 GM/DL 5.7 GM/DL Albumin 1.8 GM/DL 1.5 GM/DL Lipase 33 U/L Free Thyroxine 1.98 NG/DL Thyroid Stimulating Hormone 1.370 uIU/ML 3rd Gen Lactic Acid Level 4.8 mmol/L 2.3 mmol/L 1.1 mmol/L Protein Corrected Calcium 8.2 MG/DL Microbiology Date/Time Procedure Status Source Growth 03/09/16 15:15 Aerobic Blood Culture - Preliminary Resulted Blood Peripheral NO GROWTH IN 2 DAYS 03/09/16 15:15 Anaerobic Blood Culture - Preliminary Resulted Gram Positive Cocci 03/09/16 15:30 Aerobic Blood Culture - Preliminary Resulted Blood Peripheral NO GROWTH IN 2 DAYS 03/09/16 15:30 Anaerobic Blood Culture - Preliminary Resulted Gram Positive Cocci Pleomorphic Gram Positive Rods 03/09/16 16:20 Influenza Types A,B Antigen (WINSTON) - Final Complete Nasal Washing NEGATIVE FOR FLU A AND B ANTIGEN.... IMAGING: Chest X-Ray 03/10/16 0000 Signed Impressions: Service Date/Time: Thursday, March 10, 2016 04:39 - CONCLUSION: No significant change. Guzman Cifuentes MD Abdomen/Pelvis CT 03/09/16 1700 Signed Impressions: Service Date/Time: Wednesday, March 09, 2016 16:57 - CONCLUSION: 1. Apparent Whipple with Oscar-en-Y reconstruction of a bile duct. There is portal air evident. 2. There is adenopathy in the mj hepatis as well as in the retroperitoneum. The largest of these nodes measure 2 cm and are suspicious for neoplastic nodes. Rosas Ledezma MD FACR CT Angiography 03/09/16 0000 Signed Impressions: Service Date/Time: Wednesday, March 09, 2016 16:57 - CONCLUSION: 1. Minimal linear scarring or atelectasis in the right hemithorax with no confluent infiltrate or pulmonary embolus. 2. Pneumobilia which may be related to a prior cholecystectomy. 3. Cystic structure just medial to and possibly involving the right hepatic lobe. Findings are very nonspecific and include entities such as pseudocyst, hematoma, abscess or cystic mass lesion. Please see CT scan of the abdomen for further characterization. Jin Damon MD PHYSICAL EXAMINATION: IN GENERAL: No acute distress. He is awake and alert and oriented. HEAD, EYES, EARS, NOSE, AND THROAT: Head atraumatic. Extraocular movements grossly intact. No icterus. No conjunctival erythema. Oropharynx moist mucosa without lesions. NECK: Supple without adenopathy or swelling. LUNGS: Clear. HEART: Regular S1-S2 without murmurs. ABDOMEN: Bowel sounds present, soft, nontender. No hepatosplenomegaly. No masses palpable. EXTREMITIES: No clubbing or cyanosis or edema. SKIN: No rash. The skin has a bronze Hue. NEUROLOGIC: Nonfocal. PSYCHIATRIC: The patient calm and cooperative and pleasant. IMPRESSION: Septic shock. Leukocytosis. Acute Kidney disease. RECOMMENDATIONS 1. Continue current antibiotic treatment with vancomycin, azithromycin and aztreonam and Follow the blood cultures for ID of the bacteria in the blood. 2. Monitor white blood cell count. 3. Follow clinical status. Rhys Mosqueda MD Mar 11, 2016 14:01
[2016-03-11 15:00] LABS: AUTOMATED NEUTROPHIL # 26.2 TH/MM3 (1.8-7.7); BASOPHIL % 0.1 % (0.0-2.0); EOSINOPHIL % 0.1 % (0.0-4.0); HEMATOCRIT 33.5 % (39.0-51.0); HEMO FLAGS DIFF FINAL; LYMPH % 3.2 % (9.0-44.0); LYMPHOCYTE # 0.9 TH/MM3 (1.0-4.8); MEAN CELL VOLUME 89.8 FL (80.0-100.0); MEAN CORPUSCULAR HGB CONC 32.3 % (32.0-36.0); NEUT % 92.6 % (16.0-70.0); PLATELET COUNT 627 TH/MM3 (150-450); RED BLOOD COUNT 3.73 MIL/MM3 (4.50-5.90); RED CELL DISTRIBUTION WIDTH 14.2 % (11.6-17.2); WHITE BLOOD COUNT 28.3 TH/MM3 (4.0-11.0)
[2016-03-11 15:36] LABS: BICARBONATE 23.9 MEQ/L (21.0-32.0); POTASSIUM 4.2 MEQ/L (3.5-5.1)
[2016-03-11] MEDS: ENOXAPARIN SODIUM 30 MG/0.3 ML SYRINGE SQ SCH (17:39)
[2016-03-11] MEDS: VANCOMYCIN INJ 1,250 MG in SODIUM CHLOR 0.9% 250 ML INJ 250 ML IV SCH (17:39)
[2016-03-12] VITALS (10 sets, daily range): BP systolic 106–123; BP diastolic 57–66; PULSE 88–110; RESP 16–18; TEMP 98–98.7; O2SAT 94–97
[2016-03-12] MEDS: AZITHROMYCIN INJ 500 MG in SODIUM CHLOR 0.9% 250 ML INJ 250 ML IV SCH ×2
[2016-03-12 05:34] LABS: HEMATOCRIT 29.1 % (39.0-51.0); MEAN CELL VOLUME 87.8 FL (80.0-100.0); MEAN CORPUSCULAR HEMOGLOBIN 29.2 PG (27.0-34.0); MEAN CORPUSCULAR HGB CONC 33.3 % (32.0-36.0); PLATELET COUNT 433 TH/MM3 (150-450); RED BLOOD COUNT 3.32 MIL/MM3 (4.50-5.90); RED CELL DISTRIBUTION WIDTH 13.7 % (11.6-17.2); REVIEW FLAG FINAL; WHITE BLOOD COUNT 21.2 TH/MM3 (4.0-11.0)
[2016-03-12 05:54] LABS: BICARBONATE 19.7 MEQ/L (21.0-32.0); POTASSIUM 3.8 MEQ/L (3.5-5.1)
[2016-03-12] MEDS: PANTOPRAZOLE SODIUM 40 MG VIAL IV SCH (08:03)
[2016-03-12] MEDS: TIOTROPIUM BROMIDE 18 MCG INH INH SCH (08:03)
[2016-03-12] MEDS: ATORVASTATIN 20 MG TAB PO SCH (08:04)
[2016-03-12] MEDS: AZTREONAM INJ 1,000 MG in SODIUM CHLORIDE 0.9% INJ 100 ML IV SCH ×4 (08:04→18:25)
[2016-03-12] MEDS: SODIUM CHLORIDE 0.9% FLUSH 5 ML FLUSH IV FLUSH SCH ×2 (08:06→20:15)
[2016-03-12] MEDS: SODIUM CHLORIDE 0.9% FLUSH 5 ML FLUSH IVF SCH ×2 (08:06→20:15)
--- NOTE | 2016-03-12 14:47 | HHI.PR ---
Subjective History of Present Illness feels better +ve cough ,no sptum No fever or chills No CP No SOB No N/V poor appetite No abd pain No diarrhea Offers no other c/o Vitals/Results Intake & Output 03/11/16 03/11/16 03/12/16 15:00 23:00 07:00 Intake Total 1285 ml 1211 ml 1050 ml Output Total 650 ml 725 ml 754 ml Balance 635 ml 486 ml 296 ml Intake Oral 600 ml 500 ml 225 ml IV Total 685 ml 711 ml 825 ml Output Urine Total 650 ml 725 ml 750 ml Stool Total 4 ml Vital Signs Vital Signs Date Time Temp Pulse Resp B/P Pulse Ox O2 Delivery O2 Flow Rate FiO2 03/12/16 10:00 100 03/12/16 08:00 110 03/12/16 08:00 98.4 110 16 106/65 94 03/12/16 06:00 91 03/12/16 04:00 91 03/12/16 04:00 98.3 90 18 113/57 96 03/12/16 02:00 91 03/12/16 00:00 98.6 90 18 118/60 96 03/12/16 00:00 91 03/11/16 22:00 91 03/11/16 20:14 96 03/11/16 20:00 91 03/11/16 20:00 98.6 90 18 119/71 96 03/11/16 18:00 91 03/11/16 16:00 90 03/11/16 16:00 98.6 90 18 129/59 96 CBC/BMP: 03/12/16 0423 03/12/16 0423 Lab Results Laboratory Tests Test 03/11/16 03/12/16 14:38 04:23 White Blood Count 28.3 TH/MM3 21.2 TH/MM3 Red Blood Count 3.73 MIL/MM3 3.32 MIL/MM3 Hemoglobin 10.8 GM/DL 9.7 GM/DL Hematocrit 33.5 % 29.1 % Mean Corpuscular Volume 89.8 FL 87.8 FL Mean Corpuscular Hemoglobin 29.0 PG 29.2 PG Mean Corpuscular Hemoglobin 32.3 % 33.3 % Concent Red Cell Distribution Width 14.2 % 13.7 % Platelet Count 627 TH/MM3 433 TH/MM3 Mean Platelet Volume 6.8 FL 7.2 FL Neutrophils (%) (Auto) 92.6 % Lymphocytes (%) (Auto) 3.2 % Monocytes (%) (Auto) 4.0 % Eosinophils (%) (Auto) 0.1 % Basophils (%) (Auto) 0.1 % Neutrophils # (Auto) 26.2 TH/MM3 Lymphocytes # (Auto) 0.9 TH/MM3 Monocytes # (Auto) 1.1 TH/MM3 Eosinophils # (Auto) 0.0 TH/MM3 Basophils # (Auto) 0.0 TH/MM3 CBC Comment DIFF FINAL Differential Comment Sodium Level 138 MEQ/L 138 MEQ/L Potassium Level 4.2 MEQ/L 3.8 MEQ/L Chloride Level 107 MEQ/L 109 MEQ/L Carbon Dioxide Level 23.9 MEQ/L 19.7 MEQ/L Anion Gap 7 MEQ/L 9 MEQ/L Blood Urea Nitrogen 35 MG/DL 27 MG/DL Creatinine 1.30 MG/DL 0.99 MG/DL Estimat Glomerular Filtration 52 ML/MIN 71 ML/MIN Rate Random Glucose 171 MG/DL 97 MG/DL Calcium Level 8.1 MG/DL 7.7 MG/DL Physical Exam General General Appearance: No Acute Distress, Comfortable Eyes Eye Exam: Sclera White, Extraocular Movement Intact Ears & Nose Ears & Nose Exam: Nasal Mucosa [place] Throat Throat Exam: Oral Mucosa [place] & Moist Neck Neck Exam: Neck Supple, Trachea Midline Pulmonary Resp Exam: Clear Bilaterally, Breath Sounds Equal, No Distress Cardiology CV Exam: Irregular CV Remarks irregularly irregular rhythm Gastrointestinal/Abdomen GI Exam: Soft, Non-Tender, Bowel Sounds Present Integumentary Skin Exam: Warm, Dry Extremeties Extremities Exam: No Edema, Pedal Pulses Palpable Neurologic Neuro Exam: Alert, Awake, Oriented, Speech Clear, Moving All Extremities Psychiatric Psych Exam: Appropriate Responses VTE Prophylaxis VTE Prophylaxis Meds: Lovenox PUD Prophylasis PUD Prophylaxis: Protonix Assessment/Plan Assessment/Plan Diagnosis: (1) Severe sepsis (2) Acute kidney injury (3) Atrial fibrillation with RVR (4) Hx of cancer of lung (5) 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 Patient was found in septic shock, possibly secondary to pulmonary infection, with acute renal injury and lactic acidosis, require fluid resuscitation and pressor support. -Blood cultures 2/2 strep Viridans -IV Vanco / Aztreonam -ID f/u IV fluids Lactic acid factor normal -monitor CBC. no fever. Acute renal injury, secondary to sepsis, creatinine improving Continue with IV fluids Continue to monitor BMP Avoid nephrotoxic agents, NSAIDs, JANET inhibitor's Paroxysmal A. fib with RVR, now resolved, likely secondary to sepsis Cardiology has evaluated, no anticoagulation recommended Echo NL LVF EF 55 to 60% COPD, stable Continue with DuoNeb's as needed Hx of lung cancer with RML,s/p resection s/p recurrence in 2010 with adrenal and pancreatic cancer-had Whipple procedure at [place]. Follows up at [place] and Dr. Garg, /in remission -monitor for now -Abdomen CT findings showed adenopathy in the mj hepatis as well as retroperitoneum, largest of nodes measuring 2 cm. Patient will need to follow-up with oncologist at [facility] severe protein calorie malnutrition encourage po intake start protein supplement Continue with Protonix for GI prophylaxis, Lovenox for DVT prophylaxis DC carranza catheter Physical therapy for evaluation and treatment Ember Pemberton MD Mar 12, 2016 14:47
[2016-03-12] MEDS: SODIUM CHLOR 0.9% 1000 ML INJ 1,000 ML IV SCH (15:38)
[2016-03-12] MEDS: VANCOMYCIN INJ 1,250 MG in SODIUM CHLOR 0.9% 250 ML INJ 250 ML IV SCH (15:39)
--- NOTE | 2016-03-12 16:03 | HHI.IDPN ---
Note Infectious Disease Note Patient feels okay. No chills. Afebrile. Blood culture has strep viridans. 2D ECHO did not reveal any heart valve lesions. Presented to [place] emergency department with fever and cough and chills. He was found to be hypotensive and was also found to have new onset atrial fibrillation. The patient recently was treated for influenza with Tamiflu. 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 ALLERGIES THE PATIENT IS REPORTEDLY ALLERGIC TO PENICILLIN HOWEVER, HE WAS TESTED AT THE [facility] AND REPORTS THAT HE IS NOT ALLERGIC TO PENICILLIN. MEDICATIONS Current Medications Medications (Trade) Dose Ordered Sig/Balaji Route PRN Reason Start Time Stop Time Status Last Admin Dose Admin Ondansetron HCl (Zofran Inj) 4 mg Q6H PRN IV NAUSEA OR VOMITING 03/09/16 17:15 Acetaminophen (Tylenol) 650 mg Q4H PRN PO Temp>101F, Headache 03/09/16 17:15 IV Flush (NS Flush) 2 ml BID IVF 03/09/16 21:00 03/12/16 08:06 IV Flush 2 ml 2 ml UNSCH PRN IVF FLUSH AFTER USING IV ACCESS 03/09/16 17:15 Sodium Chloride (NS 1000 ml Inj) 1,000 ml @ 84 mls/hr [id number] IV 03/09/16 16:57 03/12/16 15:38 IV Flush (NS Flush) 2 ml UNSCH PRN IV FLUSH FLUSH AFTER USING IV ACCESS 03/09/16 17:00 IV Flush (NS Flush) 2 ml BID IV FLUSH 03/09/16 21:00 03/12/16 08:06 Pantoprazole Sodium (Protonix Inj) 40 mg DAILY IV 03/10/16 09:00 03/12/16 08:03 Enoxaparin Sodium (Lovenox Inj) 30 mg Q24H SQ 03/09/16 18:00 03/11/16 17:39 Miscellaneous Information 1 Q361D XX 03/09/16 17:00 Chlorhexidine Gluconate (Chlorhexidine 2% Cloth) 3 pack Taper DAILY@04 TOP 03/10/16 04:00 03/06/17 03:59 03/11/16 23:14 Chlorhexidine Gluconate (Chlorhexidine 2% Cloth) 3 pack UNSCH PRN TOP HYGIENIC CARE 03/09/16 17:00 Atorvastatin Calcium (Lipitor) 20 mg DAILY PO 03/10/16 09:00 03/12/16 08:04 Tiotropium [place] 18 mcg 18 mcg DAILY INH 03/10/16 09:00 03/12/16 08:03 Pharmacy Profile Note 0 ml @ 0 mls/hr UNSCH OTHER 03/09/16 17:15 Aztreonam 1000 mg/ Sodium Chloride 100 ml @ 200 mls/hr Q8H IV 03/10/16 01:00 03/12/16 08:04 Diltiazem HCl/ Sodium Chloride (Cardizem Inj/NS Inj) 125 ml @ 0 mls/hr TITRATE IV 03/09/16 17:45 Miscellaneous Information SPECIFIC LAB TO BE DRAWN:VANCOMYCIN TROUGH DATE TO... ONCE ONCE XX 03/13/16 15:45 03/13/16 15:46 Terbutaline Sulfate 1 mg 1 mg UNSCH PRN SQ For Extravasation 03/09/16 18:30 Azithromycin 500 mg/Sodium Chloride 250 ml @ 250 mls/hr Q24H IV 03/10/16 02:00 03/12/16 00:00 Vancomycin HCl/ Sodium Chloride (Vancomycin Inj/ NS 250 ml Inj) 250 ml @ 250 mls/hr Q24H IV 03/10/16 16:00 03/12/16 15:39 SOCIAL HISTORY No tobacco, daily alcohol. No illicit drugs. FAMILY HISTORY One alcoholic drink per day. No illicit drugs. FAMILY HISTORY Noncontributory. OBJ: Vital Signs Date Time Temp Pulse Resp B/P Pulse Ox O2 Delivery O2 Flow Rate FiO2 03/12/16 14:22 98.7 88 17 115/62 97 03/12/16 10:00 100 03/12/16 08:00 110 03/12/16 08:00 98.4 110 16 106/65 94 03/12/16 06:00 91 03/12/16 04:00 91 03/12/16 04:00 98.3 90 18 113/57 96 03/12/16 02:00 91 03/12/16 00:00 98.6 90 18 118/60 96 03/12/16 00:00 91 03/11/16 22:00 91 03/11/16 20:14 96 03/11/16 20:00 91 03/11/16 20:00 98.6 90 18 119/71 96 03/11/16 18:00 91 03/11/16 16:00 90 03/11/16 16:00 98.6 90 18 129/59 96 03/11/16 03/11/16 03/12/16 15:00 23:00 07:00 Intake Total 1285 ml 1211 ml 1050 ml Output Total 650 ml 725 ml 754 ml Balance 635 ml 486 ml 296 ml Intake Oral 600 ml 500 ml 225 ml IV Total 685 ml 711 ml 825 ml Output Urine Total 650 ml 725 ml 750 ml Stool Total 4 ml Laboratory Tests Test 03/11/16 03/12/16 14:38 04:23 White Blood Count 28.3 TH/MM3 21.2 TH/MM3 Red Blood Count 3.73 MIL/MM3 3.32 MIL/MM3 Hemoglobin 10.8 GM/DL 9.7 GM/DL Hematocrit 33.5 % 29.1 % Mean Corpuscular Volume 89.8 FL 87.8 FL Mean Corpuscular Hemoglobin 29.0 PG 29.2 PG Mean Corpuscular Hemoglobin 32.3 % 33.3 % Concent Red Cell Distribution Width 14.2 % 13.7 % Platelet Count 627 TH/MM3 433 TH/MM3 Mean Platelet Volume 6.8 FL 7.2 FL Neutrophils (%) (Auto) 92.6 % Lymphocytes (%) (Auto) 3.2 % Monocytes (%) (Auto) 4.0 % Eosinophils (%) (Auto) 0.1 % Basophils (%) (Auto) 0.1 % Neutrophils # (Auto) 26.2 TH/MM3 Lymphocytes # (Auto) 0.9 TH/MM3 Monocytes # (Auto) 1.1 TH/MM3 Eosinophils # (Auto) 0.0 TH/MM3 Basophils # (Auto) 0.0 TH/MM3 CBC Comment DIFF FINAL Differential Comment Laboratory Tests Test 03/11/16 03/12/16 14:38 04:23 Sodium Level 138 MEQ/L 138 MEQ/L Potassium Level 4.2 MEQ/L 3.8 MEQ/L Chloride Level 107 MEQ/L 109 MEQ/L Carbon Dioxide Level 23.9 MEQ/L 19.7 MEQ/L Anion Gap 7 MEQ/L 9 MEQ/L Blood Urea Nitrogen 35 MG/DL 27 MG/DL Creatinine 1.30 MG/DL 0.99 MG/DL Estimat Glomerular Filtration 52 ML/MIN 71 ML/MIN Rate Random Glucose 171 MG/DL 97 MG/DL Calcium Level 8.1 MG/DL 7.7 MG/DL Microbiology Date/Time Procedure Status Source Growth 03/09/16 16:20 Influenza Types A,B Antigen ([facility]) - Final Complete Nasal Washing NEGATIVE FOR FLU A AND B ANTIGEN.... IMAGING: Chest X-Ray 03/10/16 0000 Signed Impressions: Service Date/Time: Thursday, March 10, 2016 04:39 - CONCLUSION: No significant change. Guzman Cifuentes MD Abdomen/Pelvis CT 03/09/16 1700 Signed Impressions: Service Date/Time: Wednesday, March 09, 2016 16:57 - CONCLUSION: 1. Apparent Whipple with Oscar-en-Y reconstruction of a bile duct. There is portal air evident. 2. There is adenopathy in the mj hepatis as well as in the retroperitoneum. The largest of these nodes measure 2 cm and are suspicious for neoplastic nodes. Rosas Ledezma MD FACR CT Angiography 03/09/16 0000 Signed Impressions: Service Date/Time: Wednesday, March 09, 2016 16:57 - CONCLUSION: 1. Minimal linear scarring or atelectasis in the right hemithorax with no confluent infiltrate or pulmonary embolus. 2. Pneumobilia which may be related to a prior cholecystectomy. 3. Cystic structure just medial to and possibly involving the right hepatic lobe. Findings are very nonspecific and include entities such as pseudocyst, hematoma, abscess or cystic mass lesion. Please see CT scan of the abdomen for further characterization. Jin Damon MD PHYSICAL EXAMINATION: IN GENERAL: No acute distress. He is awake and alert and oriented. HEAD, EYES, EARS, NOSE, AND THROAT: Head atraumatic. Extraocular movements grossly intact. No icterus. No conjunctival erythema. Oropharynx moist mucosa without lesions. NECK: Supple without adenopathy or swelling. LUNGS: Clear BS. HEART: Regular S1-S2 without murmurs. ABDOMEN: Bowel sounds present, soft, nontender. No hepatosplenomegaly. No masses palpable. EXTREMITIES: No clubbing or cyanosis or edema. no pheral embolic phenomena. SKIN: No rash. NEUROLOGIC: Nonfocal. PSYCHIATRIC: The patient calm and cooperative and pleasant. IMPRESSION: Septic shock. strep viridans. Leukocytosis. Slow to improve. Acute Kidney disease. Improving. RECOMMENDATIONS 1. Continue vancomycin. 2. Stop azithromycin 3. Stop aztreonam. 4. Monitor white blood cell count. 5. Repeat the blood cultures today. 6. Follow clinical status. Once blood cultures are clear and WBC is improved, arrangements can be made for outpatient antibiotics. Discussed with patient. Rhys Mosqueda MD Mar 12, 2016 16:03
[2016-03-12] MEDS: ENOXAPARIN SODIUM 30 MG/0.3 ML SYRINGE SQ SCH (18:24)
[2016-03-13] VITALS (7 sets, daily range): BP systolic 102–148; BP diastolic 59–84; PULSE 72–90; RESP 18–21; TEMP 96.4–98.2; O2SAT 95–98
[2016-03-13] MEDS: AZITHROMYCIN INJ 500 MG in SODIUM CHLOR 0.9% 250 ML INJ 250 ML IV SCH (01:40)
[2016-03-13] MEDS: AZTREONAM INJ 1,000 MG in SODIUM CHLORIDE 0.9% INJ 100 ML IV SCH ×3 (01:40→17:22)
[2016-03-13] MEDS: CHLORHEXIDINE GLUCONATE 2 % 1 PACK (2 CLOTHS) TOP SCH (04:00)
[2016-03-13] MEDS: SODIUM CHLOR 0.9% 1000 ML INJ 1,000 ML IV SCH (04:19)
[2016-03-13 06:12] LABS: HEMATOCRIT 29.6 % (39.0-51.0); MEAN CORPUSCULAR HEMOGLOBIN 28.7 PG (27.0-34.0); MEAN CORPUSCULAR HGB CONC 32.6 % (32.0-36.0); PLATELET COUNT 446 TH/MM3 (150-450); RED BLOOD COUNT 3.37 MIL/MM3 (4.50-5.90); RED CELL DISTRIBUTION WIDTH 13.5 % (11.6-17.2); REVIEW FLAG FINAL; WHITE BLOOD COUNT 18.3 TH/MM3 (4.0-11.0)
[2016-03-13 06:32] LABS: BICARBONATE 22.8 MEQ/L (21.0-32.0); POTASSIUM 3.8 MEQ/L (3.5-5.1)
[2016-03-13] MEDS: RESP: ALBUTEROL 2.5 MG/IPRATROPIUM 0.5 MG NEB (PRN) INH (07:31)
[2016-03-13] MEDS: RESP: ALBUTEROL 0.63 MG/3 ML NEB (SCH) NEB (07:32)
[2016-03-13] MEDS: ATORVASTATIN 20 MG TAB PO SCH (08:13)
[2016-03-13] MEDS: SODIUM CHLORIDE 0.9% FLUSH 5 ML FLUSH IV FLUSH SCH ×2 (08:14→21:00)
[2016-03-13] MEDS: PANTOPRAZOLE SODIUM 40 MG VIAL IV SCH (08:14)
[2016-03-13] MEDS: SODIUM CHLORIDE 0.9% FLUSH 5 ML FLUSH IVF SCH (08:15)
[2016-03-13] MEDS: TIOTROPIUM BROMIDE 18 MCG INH INH SCH (09:00)
--- NOTE | 2016-03-13 12:52 | HHI.PR ---
Subjective History of Present Illness feels much better +ve cough ,no sptum No fever or chills No CP No SOB No N/V no abd pain moved bowel today appetite is better No diarrhea Offers no other c/o Vitals/Results Intake & Output 03/12/16 03/12/16 03/13/16 15:00 23:00 07:00 Intake Total 500 ml 672 ml Output Total 0 ml 1550 ml Balance 500 ml -878 ml Intake Oral 500 ml IV Total 672 ml Output Urine Total 0 ml 1550 ml # Bowel Movements 0 0 Vital Signs Vital Signs Date Time Temp Pulse Resp B/P Pulse Ox O2 Delivery O2 Flow Rate FiO2 03/13/16 12:11 96.8 77 20 122/60 98 03/13/16 10:25 89 03/13/16 08:00 96.6 81 20 148/77 98 03/13/16 04:00 98.2 83 18 102/59 96 03/13/16 00:00 97.8 90 18 130/84 95 03/12/16 21:30 98.0 98 18 123/66 96 03/12/16 19:00 98 03/12/16 17:42 97 21 03/12/16 14:22 98.7 88 17 115/62 97 CBC/BMP: 03/13/16 0529 03/13/16 0529 Lab Results Laboratory Tests Test 03/13/16 05:29 White Blood Count 18.3 TH/MM3 Red Blood Count 3.37 MIL/MM3 Hemoglobin 9.7 GM/DL Hematocrit 29.6 % Mean Corpuscular Volume 88.0 FL Mean Corpuscular Hemoglobin 28.7 PG Mean Corpuscular Hemoglobin 32.6 % Concent Red Cell Distribution Width 13.5 % Platelet Count 446 TH/MM3 Mean Platelet Volume 6.8 FL Sodium Level 142 MEQ/L Potassium Level 3.8 MEQ/L Chloride Level 112 MEQ/L Carbon Dioxide Level 22.8 MEQ/L Anion Gap 7 MEQ/L Blood Urea Nitrogen 22 MG/DL Creatinine 0.87 MG/DL Estimat Glomerular Filtration 83 ML/MIN Rate Random Glucose 85 MG/DL Calcium Level 7.6 MG/DL Microbiology Microbiology 03/12/16 Aerobic Blood Culture - Preliminary, Resulted NO GROWTH IN 1 DAY 03/12/16 Anaerobic Blood Culture - Preliminary, Resulted NO GROWTH IN 1 DAY 03/12/16 Aerobic Blood Culture - Preliminary, Resulted NO GROWTH IN 1 DAY 03/12/16 Anaerobic Blood Culture - Preliminary, Resulted NO GROWTH IN 1 DAY Physical Exam General General Appearance: No Acute Distress, Comfortable Eyes Eye Exam: Sclera White, Extraocular Movement Intact Ears & Nose Ears & Nose Exam: Nasal Mucosa [place] Throat Throat Exam: Oral Mucosa [place] & Moist Neck Neck Exam: Neck Supple, Trachea Midline Pulmonary Resp Exam: Clear Bilaterally, Breath Sounds Equal, No Distress Cardiology CV Exam: Irregular CV Remarks irregularly irregular rhythm Gastrointestinal/Abdomen GI Exam: Soft, Non-Tender, Bowel Sounds Present Integumentary Skin Exam: Warm, Dry Extremeties Extremities Exam: No Edema, Pedal Pulses Palpable Neurologic Neuro Exam: Alert, Awake, Oriented, Speech Clear, Moving All Extremities Psychiatric Psych Exam: Appropriate Responses VTE Prophylaxis VTE Prophylaxis Meds: Lovenox PUD Prophylasis PUD Prophylaxis: Protonix Assessment/Plan Assessment/Plan Diagnosis: (1) Severe sepsis (2) Acute kidney injury (3) Atrial fibrillation with RVR (4) Hx of cancer of lung (5) 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 Patient was found in septic shock, possibly secondary to pulmonary infection, with acute renal injury and lactic acidosis, require fluid resuscitation and pressor support. -Blood cultures 2/2 strep Viridans -repeat blood c/s ng so far -IV Vanco -d/w DR Bellamy/ if repeat blood c/s is ng than pt can be [facility]x d/c IV fluids Lactic acid factor normal -monitor CBC. no fever. Acute renal injury, secondary to sepsis, creatinine improving d/c IV fluids - lasix 20 mg qd for edema Continue to monitor BMP Avoid nephrotoxic agents, NSAIDs, JANET inhibitor's Paroxysmal A. fib with RVR, now resolved, likely secondary to sepsis Cardiology has evaluated, no anticoagulation recommended Echo NL LVF EF 55 to 60% COPD, stable Continue with DuoNeb's as needed Hx of lung cancer with RML,s/p resection s/p recurrence in 2010 with adrenal and pancreatic cancer-had Whipple procedure at [facility]. Follows up at [facility] and Dr. Doughney, /in remission -monitor for now -Abdomen CT findings showed adenopathy in the mj hepatis as well as retroperitoneum, largest of nodes measuring 2 cm. Patient will need to follow-up with oncologist at [facility] severe protein calorie malnutrition encourage po intake start protein supplement Continue with Protonix for GI prophylaxis, Lovenox for DVT prophylaxis Physical therapy for evaluation and treatment Ember Pemberton MD Mar 13, 2016 12:52
[2016-03-13] MEDS ORDERED: PHARMACY ORDERED LAB XX ONE (15:45)
[2016-03-13] MEDS: VANCOMYCIN INJ 1,250 MG in SODIUM CHLOR 0.9% 250 ML INJ 250 ML IV SCH (16:00)
[2016-03-13] MEDS: ENOXAPARIN SODIUM 30 MG/0.3 ML SYRINGE SQ SCH (17:15)
[2016-03-14] VITALS (8 sets, daily range): BP systolic 117–137; BP diastolic 63–69; PULSE 65–92; RESP 12–20; TEMP 95.6–97.3; O2SAT 96–98
[2016-03-14] MEDS: AZTREONAM INJ 1,000 MG in SODIUM CHLORIDE 0.9% INJ 100 ML IV SCH ×2 (00:44→08:30)
[2016-03-14] MEDS: AZITHROMYCIN INJ 500 MG in SODIUM CHLOR 0.9% 250 ML INJ 250 ML IV SCH (00:53)
[2016-03-14] MEDS: CHLORHEXIDINE GLUCONATE 2 % 1 PACK (2 CLOTHS) TOP SCH (04:00)
[2016-03-14] MEDS: SODIUM CHLOR 0.9% 1000 ML INJ 1,000 ML IV SCH ×3 (04:12→12:22)
[2016-03-14] MEDS: RESP: ALBUTEROL 0.63 MG/3 ML NEB (SCH) NEB (07:58)
[2016-03-14] MEDS: ATORVASTATIN 20 MG TAB PO SCH (08:31)
[2016-03-14] MEDS: POTASSIUM CHLORIDE 10 MEQ CONTROLLED RELEASE TAB PO SCH (08:31)
[2016-03-14] MEDS: FUROSEMIDE 20 MG TAB PO SCH (08:31)
[2016-03-14] MEDS: PANTOPRAZOLE SODIUM 40 MG VIAL IV SCH (08:31)
[2016-03-14] MEDS: SODIUM CHLORIDE 0.9% FLUSH 5 ML FLUSH IV FLUSH SCH ×2 (08:32→21:02)
[2016-03-14] MEDS: TIOTROPIUM BROMIDE 18 MCG INH INH SCH (08:32)
[2016-03-14] MEDS ORDERED: VANCOMYCIN INJ 1,250 MG in SODIUM CHLOR 0.9% 250 ML INJ 250 ML IV SCH (10:00)
--- NOTE | 2016-03-14 11:49 | HHI.PR ---
Subjective History of Present Illness feels well +ve cough ,no sptum No fever or chills No CP No SOB No N/V Good appetite no abd pain Moving bowel No diarrhea Ambulating in the room independently Offers no other c/o Vitals/Results Intake & Output 03/13/16 03/13/16 03/14/16 15:00 23:00 07:00 Intake Total 840 ml Balance 840 ml Intake Oral 840 ml # Voids 3 1 1 # Bowel Movements 0 1 Vital Signs Vital Signs Date Time Temp Pulse Resp B/P Pulse Ox O2 Delivery O2 Flow Rate FiO2 03/14/16 08:01 97 21 03/14/16 08:00 96.5 65 17 137/69 98 03/14/16 04:51 97.3 87 19 117/65 97 03/14/16 00:03 97.2 90 19 122/63 96 03/13/16 20:29 96.5 88 21 133/66 97 03/13/16 16:00 96.4 72 20 129/61 98 03/13/16 12:11 96.8 77 20 122/60 98 CBC/BMP: 03/13/16 0529 03/14/16 0700 Lab Results Laboratory Tests Test 03/13/16 03/14/16 17:15 07:00 Vancomycin Level Trough 9.6 MCG/ML Creatinine 0.78 MG/DL Estimat Glomerular Filtration 94 ML/MIN Rate Physical Exam General General Appearance: No Acute Distress, Comfortable Eyes Eye Exam: Sclera White, Extraocular Movement Intact Ears & Nose Ears & Nose Exam: Nasal Mucosa [place] Throat Throat Exam: Oral Mucosa [place] & Moist Neck Neck Exam: Neck Supple, Trachea Midline Pulmonary Resp Exam: Clear Bilaterally, Breath Sounds Equal, No Distress Cardiology CV Exam: Irregular CV Remarks irregularly irregular rhythm Gastrointestinal/Abdomen GI Exam: Soft, Non-Tender, Bowel Sounds Present Integumentary Skin Exam: Warm, Dry Extremeties Extremities Exam: Pedal Pulses Palpable Extremeties Remarks Mild bi-ankle edema Neurologic Neuro Exam: Alert, Awake, Oriented, Speech Clear, Moving All Extremities Psychiatric Psych Exam: Appropriate Responses VTE Prophylaxis VTE Prophylaxis Meds: Lovenox PUD Prophylasis PUD Prophylaxis: Protonix Assessment/Plan Assessment/Plan Diagnosis: (1) s/p Severe sepsis (2) Acute kidney injury (3) Atrial fibrillation with RVR (4) Hx of cancer of lung (5) 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 Patient was found in septic shock, possibly secondary to pulmonary infection, with acute renal injury and lactic acidosis, require fluid resuscitation and pressor support. -Blood cultures 2/2 strep Viridans -repeat blood c/s ng so far -IV Vanco -Lactic acid factor normal -monitor CBC. no fever. Acute renal injury, secondary to sepsis, creatinine improving off IV fluids - lasix 20 mg qd for edema Continue to monitor BMP Avoid nephrotoxic agents, NSAIDs, JANET inhibitor's Paroxysmal A. fib with RVR, now resolved, likely secondary to sepsis Cardiology has evaluated, no anticoagulation recommended Echo NL LVF EF 55 to 60% COPD, stable Continue with DuoNeb's as needed Hx of lung cancer with RML,s/p resection s/p recurrence in 2010 with adrenal and pancreatic cancer-had Whipple procedure at [place]. Follows up at [place] and Dr. Garg, /in remission -monitor for now -Abdomen CT findings showed adenopathy in the mj hepatis as well as retroperitoneum, largest of nodes measuring 2 cm. Patient will need to follow-up with oncologist at [facility] severe protein calorie malnutrition encourage po intake protein supplement Continue with Protonix for GI prophylaxis, Lovenox for DVT prophylaxis Physical therapy for evaluation and treatment Discussed with patient and his at bedside/answered all of their questions Patient's is hoping home with home health care ss for d/c planning /d/c home C when cleared by Ember Devries MD Mar 14, 2016 11:49
--- NOTE | 2016-03-14 12:10 | HHI.PR ---
Addendum to Inpatient Note Addendum Reason: Additional Documentation Additional Information Recd call from pharmacist Cesia. She pointed out that last note on patient says to DC Azactam and DC azithro but it still is on. I reviewed chart no new fevers or wbc elevation. No clinical change based on chart review. Cultures reviewed: BCX: Strep and pleomorphic gram positive rods. Patient is allergic to penicillin. Ok to stop Azactam and Azithro for now. Continue Vanco IV(target trough 15-20) Will let know to follow patient on Wednesday next week If any clinical change in the interim please call me sooner. Denise Alexander MD Mar 14, 2016 12:10
[2016-03-14] MEDS: ENOXAPARIN SODIUM 30 MG/0.3 ML SYRINGE SQ SCH (16:21)
[2016-03-14] MEDS: VANCOMYCIN INJ 1,250 MG in SODIUM CHLOR 0.9% 250 ML INJ 250 ML IV SCH (21:02)
[2016-03-15] VITALS (9 sets, daily range): BP systolic 122–144; BP diastolic 60–80; PULSE 71–123; RESP 14–22; TEMP 95.6–98.4; O2SAT 94–98
[2016-03-15] MEDS: CHLORHEXIDINE GLUCONATE 2 % 1 PACK (2 CLOTHS) TOP SCH (04:00)
[2016-03-15] MEDS: ATORVASTATIN 20 MG TAB PO SCH (07:49)
[2016-03-15] MEDS: PANTOPRAZOLE SODIUM 40 MG VIAL IV SCH (07:49)
[2016-03-15] MEDS: FUROSEMIDE 20 MG TAB PO SCH ×2 (07:49→20:15)
[2016-03-15] MEDS: POTASSIUM CHLORIDE 10 MEQ CONTROLLED RELEASE TAB PO SCH ×2 (07:49→20:15)
[2016-03-15] MEDS: TIOTROPIUM BROMIDE 18 MCG INH INH SCH (07:49)
[2016-03-15] MEDS: SODIUM CHLORIDE 0.9% FLUSH 5 ML FLUSH IV FLUSH SCH ×2 (07:50→20:17)
--- NOTE | 2016-03-15 11:41 | HHI.PR ---
Subjective History of Present Illness No chest pain No Sob BM today appetite increased No cough Hospital Day: 6 Subjective Remarks My legs and ankles are swelling. So are my arms/hands. I get up and walk. (Keiko Kearns) Review of Systems Musculoskeletal MS: Swelling (Keiko Kearns) Allergic/Immunologic Allergic/Immunologic/Remarks 12 point ROS done. 4 extremity edema. All other systems negative. (Keiko Kearns) Vitals/Results Intake & Output 03/14/16 03/14/16 03/15/16 15:00 23:00 07:00 Intake Total 360 ml Output Total 600 ml Balance -240 ml Intake Oral 360 ml Output Urine Total 600 ml # Bowel Movements 1 Vital Signs Vital Signs Date Time Temp Pulse Resp B/P Pulse Ox O2 Delivery O2 Flow Rate FiO2 03/15/16 11:02 97 21 03/15/16 08:00 96.3 71 16 144/65 97 03/15/16 04:00 97.7 82 14 130/60 98 03/15/16 04:00 98.4 72 22 124/80 94 03/14/16 20:00 97.3 84 12 126/65 97 03/14/16 19:00 92 03/14/16 15:30 95.6 89 20 119/68 97 (Keiko Kearns) CBC/BMP: 03/13/16 0529 03/14/16 0700 Lab Results Laboratory Tests Test 03/11/16 03/13/16 03/13/16 03/14/16 14:38 05:29 17:15 07:00 Neutrophils (%) (Auto) 92.6 % Lymphocytes (%) (Auto) 3.2 % Monocytes (%) (Auto) 4.0 % Eosinophils (%) (Auto) 0.1 % Basophils (%) (Auto) 0.1 % Neutrophils # (Auto) 26.2 TH/MM3 Lymphocytes # (Auto) 0.9 TH/MM3 Monocytes # (Auto) 1.1 TH/MM3 Eosinophils # (Auto) 0.0 TH/MM3 Basophils # (Auto) 0.0 TH/MM3 CBC Comment DIFF FINAL Differential Comment White Blood Count 18.3 TH/MM3 Red Blood Count 3.37 MIL/MM3 Hemoglobin 9.7 GM/DL Hematocrit 29.6 % Mean Corpuscular Volume 88.0 FL Mean Corpuscular Hemoglobin 28.7 PG Mean Corpuscular Hemoglobin 32.6 % Concent Red Cell Distribution Width 13.5 % Platelet Count 446 TH/MM3 Mean Platelet Volume 6.8 FL Sodium Level 142 MEQ/L Potassium Level 3.8 MEQ/L Chloride Level 112 MEQ/L Carbon Dioxide Level 22.8 MEQ/L Anion Gap 7 MEQ/L Blood Urea Nitrogen 22 MG/DL Random Glucose 85 MG/DL Calcium Level 7.6 MG/DL Vancomycin Level Trough 9.6 MCG/ML Creatinine 0.78 MG/DL Estimat Glomerular Filtration 94 ML/MIN Rate Microbiology Active Medications Miscellaneous Information SPECIFIC LAB TO BE MARILYN... ONCE ONCE XX; Start at 21:45; Stop 03/15/16 at 21:46; Status Cancel Miscellaneous Information SPECIFIC LAB TO BE MARILYN... ONCE ONCE XX; Start at 01:45; Stop 03/17/16 at 01:46 Vancomycin HCl/ Sodium Chloride (Vancomycin Inj/ NS 250 ml Inj) 262.5 ml @ 262.5 mls/ hr Q18H IV Last administered on 03/14/16t 21:02; Admin Dose 262.5 MLS /HR; Start 03/14/16 at 20:00 Imaging Remarks Last Impressions Chest X-Ray 03/10/16 0000 Signed Impressions: Service Date/Time: Thursday, March 10, 2016 04:39 - CONCLUSION: No significant change. Guzman Cifuentes MD Abdomen/Pelvis CT 03/09/16 1700 Signed Impressions: Service Date/Time: Wednesday, March 09, 2016 16:57 - CONCLUSION: 1. Apparent Whipple with Oscar-en-Y reconstruction of a bile duct. There is portal air evident. 2. There is adenopathy in the mj hepatis as well as in the retroperitoneum. The largest of these nodes measure 2 cm and are suspicious for neoplastic nodes. Rosas Ledezma MD FACR CT Angiography 03/09/16 0000 Signed Impressions: Service Date/Time: Wednesday, March 09, 2016 16:57 - CONCLUSION: 1. Minimal linear scarring or atelectasis in the right hemithorax with no confluent infiltrate or pulmonary embolus. 2. Pneumobilia which may be related to a prior cholecystectomy. 3. Cystic structure just medial to and possibly involving the right hepatic lobe. Findings are very nonspecific and include entities such as pseudocyst, hematoma, abscess or cystic mass lesion. Please see CT scan of the abdomen for further characterization. Jin Damon MD Current Medications Active Medications Miscellaneous Information SPECIFIC LAB TO BE MARILYN... ONCE ONCE XX; Start at 21:45; Stop 03/15/16 at 21:46; Status Cancel Miscellaneous Information SPECIFIC LAB TO BE MARILYN... ONCE ONCE XX; Start at 01:45; Stop 03/17/16 at 01:46 Vancomycin HCl/ Sodium Chloride (Vancomycin Inj/ NS 250 ml Inj) 262.5 ml @ 262.5 mls/ hr Q18H IV Last administered on 03/14/16t 21:02; Admin Dose 262.5 MLS /HR; Start 03/14/16 at 20:00 (Keiko Kearns M. STEAM FITTER) Physical Exam General General Appearance: No Acute Distress, Comfortable (Thompson,Susan M. STEAM [employer]TER) Eyes Eye Exam: Pupils Equal, Pupils Reactive, Sclera White, Extraocular Movement Intact (Thompson,Keiko M. STEAM [employer]) Ears & Nose Ears & Nose Exam: Nasal Mucosa [place] (Thompson,Keiko M. STEAM FITTER) Throat Throat Exam: Oral Mucosa [place] & Moist (Urmila,Keiko M. STEAM FITTER) Neck Neck Exam: Neck Supple, Trachea Midline (Thompson,Keiko M. STEAM FITTER) Pulmonary Resp Exam: Clear Bilaterally, Breath Sounds Equal, No Distress, Decreased Bases (Urmila,Keiko M. STEAM FITTER) Cardiology CV Exam: Irregular CV Remarks afib/ alt with SR (UrmilaKeiko M. STEAM FITTER) Gastrointestinal/Abdomen GI Exam: Soft, Non-Tender, Bowel Sounds Present (ThompsonKeiko M. STEAM FITTER) Musculoskeletal MS Exam: Joints Intact (ThompsonKeiko M. STEAM FITTER) Integumentary Skin Exam: Warm, Dry (ThompsonSherriKeiko M. STEAM FITTER) Extremeties Extremities Exam: No Edema, Pedal Pulses Palpable, Dependent Edema (Thompson, Keiko M. 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 Patient was found in septic shock, possibly secondary to pulmonary infection, with acute renal injury and lactic acidosis, require fluid resuscitation and pressor support. -Blood cultures 2/2 strep Viridans -repeat blood c/s ng so far -IV Vanco -Lactic acid factor normal -monitor CBC. no fever. Acute renal injury, secondary to sepsis, creatinine improving/resolving off IV fluids - lasix 20 mg qd for edema Continue to monitor BMP Avoid nephrotoxic agents, NSAIDs, JANET inhibitor's Paroxysmal A. fib with RVR, now resolved, likely secondary to sepsis Cardiology has evaluated, no anticoagulation recommended Echo NL LVF EF 55 to 60% Some SR seen on telemtry.alt with afib COPD, stable Continue with DuoNeb's as needed Hx of lung cancer with RML,s/p resection s/p recurrence in 2010 with adrenal and pancreatic cancer-had Whipple procedure at [place]. Follows up at [facility] and Dr. Garg, /in remission -monitor for now -Abdomen CT findings showed adenopathy in the mj hepatis as well as retroperitoneum, largest of nodes measuring 2 cm. Patient will need to follow-up with oncologist at [facility] severe protein calorie malnutrition encourage po intake protein supplement appetite improving and encouraged nutrition support. Continue with Protonix for GI prophylaxis, Lovenox for DVT prophylaxis Physical therapy for evaluation and treatment Discussed with patient and his at bedside/answered all of their questions Patient's is hoping home with home health care ss for d/c planning /d/c home HHC when cleared by ID Discussed Condition Comment Dr. Pemberton, findings of edema. Patient seen on his behalf. Nurse Thuan Patient (Keiko Kearns) Assessment/Plan pt is seen & Examined d/w PT & his family at bedside in detail/ answered all of their questions d/w Keiko gorman w above see orders will f/u (Ember Pemberton MD) Keiko Kearns Mar 15, 2016 11:41 Ember Pemberton MD Mar 15, 2016 17:05
[2016-03-15] MEDS: VANCOMYCIN INJ 1,250 MG in SODIUM CHLOR 0.9% 250 ML INJ 250 ML IV SCH (13:01)
[2016-03-15] MEDS: SODIUM CHLOR 0.9% 1000 ML INJ 1,000 ML IV SCH (13:13)
[2016-03-15] MEDS: ENOXAPARIN SODIUM 30 MG/0.3 ML SYRINGE SQ SCH (16:11)
[2016-03-15] MEDS ORDERED: PHARMACY ORDERED LAB XX ONE (21:45)
[2016-03-16] MEDS: SODIUM CHLOR 0.9% 1000 ML INJ 1,000 ML IV SCH (03:51)
[2016-03-16] MEDS: CHLORHEXIDINE GLUCONATE 2 % 1 PACK (2 CLOTHS) TOP SCH (03:52)
[2016-03-16 04:50] VITALS: BP 130/72; PULSE 82; RESP 20; TEMP 97.5; O2SAT 95
[2016-03-16 07:00] VITALS: PULSE 68
[2016-03-16 08:00] VITALS: BP 140/64; PULSE 76; RESP 20; TEMP 96.8; O2SAT 94
[2016-03-16 08:45] LABS: HEMATOCRIT 30.9 % (39.0-51.0); MEAN CELL VOLUME 87.2 FL (80.0-100.0); MEAN CORPUSCULAR HEMOGLOBIN 28.9 PG (27.0-34.0); MEAN CORPUSCULAR HGB CONC 33.1 % (32.0-36.0); PLATELET COUNT 563 TH/MM3 (150-450); RED BLOOD COUNT 3.54 MIL/MM3 (4.50-5.90); RED CELL DISTRIBUTION WIDTH 14.1 % (11.6-17.2); REVIEW FLAG FINAL; WHITE BLOOD COUNT 10.1 TH/MM3 (4.0-11.0)
[2016-03-16] MEDS: SODIUM CHLORIDE 0.9% FLUSH 5 ML FLUSH IV FLUSH SCH (09:00)
[2016-03-16 09:18] LABS: BICARBONATE 27.1 MEQ/L (21.0-32.0); POTASSIUM 3.8 MEQ/L (3.5-5.1)
[2016-03-16] MEDS: VANCOMYCIN INJ 1,250 MG in SODIUM CHLOR 0.9% 250 ML INJ 250 ML IV SCH (10:42)
[2016-03-16] MEDS: TIOTROPIUM BROMIDE 18 MCG INH INH SCH (10:42)
[2016-03-16] MEDS: ATORVASTATIN 20 MG TAB PO SCH (10:42)
[2016-03-16] MEDS: FUROSEMIDE 20 MG TAB PO SCH (10:43)
[2016-03-16] MEDS: POTASSIUM CHLORIDE 10 MEQ CONTROLLED RELEASE TAB PO SCH (10:43)
[2016-03-16] MEDS: PANTOPRAZOLE SODIUM 40 MG VIAL IV SCH (10:44)
--- NOTE | 2016-03-16 11:27 | HHI.FF ---
Infusion Therapy Location of Infusion Therapy: Home Health Care IV Infusion Order Patient Information Patient Weight 81.4 kg Diagnosis: Coded Allergies: Penicillin (Verified Allergy, Mild, DENIES ALLERGY TO PCN, 03/09/16) PATIENT STATES HE HAD A TEST AND [facility] STATES HE IS NOT ALLERGIC TO PENICILLIN. VERIFIED 11/23/12 TM Administer Medication Vancomycin q 24 hours 1.6 grams Start Treatment: Mar 17, 2016 Stop Treatment: Mar 23, 2016 Additional Information Venous access: PICC Line Additional Instructions [x] Peripheral flush and dressing changes per protocol [x] Implanted port and central parking line painter: * Implanted port: 10 ml Normal Saline followed by 5 ml Heparin 100 units/ml Heparin flush after each use and monthly to maintain. [] May leave port accessed during therapy. [] May leave peripheral site accessed for duration of therapy. [x] If patient has SOB or respiratory distress, check oxygen saturation. If less than 90% or clinical signs of respiratory distress, administer oxygen at 2 L/min. via nasal cannula and notify physician. [x] Anaphylaxis/Reaction orders: * Stop infusion. * Keep IV line open with saline flush. * Notify physician. * Monitor vital signs every 15 minutes until symptoms resolve. * Check Oxygen saturation; Oxygen at 2 L/min. via nasal cannula if less than 90% or clinical signs of respiratory distress. * Administer diphenhydramine (Benadryl) 25 mg IV STAT, (unless patient has received as pre-med). May repeat once, if necessary. * Solu-Cortef 250 mg IVP over 30-60 seconds, use 100 mg vials for each dissolution. * Epinephrine (1mg/1 ml) 0.3 mg subcutaneously or IVP now with any signs of respiratory distress. * Check with physician for new additional pre-med orders if patient is re- challenged or re-treated. [x] May remove PICC line when treatment complete, after confirming with Physician. [x] If the patient is admitted to the hospital, the ED, or transferred via [facility] , complete transfer form including medication reconciliation order sheet. Laboratory Tests Weekly Labs: BMP, Vancomycin Trough Additional Information Fax lab results to Dr. Mosqueda [phone] Rhys Mosqueda MD Mar 16, 2016 11:27
--- NOTE | 2016-03-16 11:38 | HHI.IDPN ---
Note Infectious Disease Note Patient feels okay. No chills. Afebrile. Ambulating in hallways. A little unsteady on feet. Repeat blood cultures are negative. 2D ECHO did not reveal any heart valve lesions. Presented to [place] emergency department with fever and cough and chills. He was found to be hypotensive and was also found to have new onset atrial fibrillation. 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 ALLERGIES THE PATIENT IS REPORTEDLY ALLERGIC TO PENICILLIN HOWEVER, HE WAS TESTED AT THE [facility] AND REPORTS THAT HE IS NOT ALLERGIC TO PENICILLIN. MEDICATIONS Current Medications Medications (Trade) Dose Ordered Sig/Balaji Route PRN Reason Start Time Stop Time Status Last Admin Dose Admin Ondansetron HCl (Zofran Inj) 4 mg Q6H PRN IV NAUSEA OR VOMITING 03/09/16 17:15 Acetaminophen 650 mg 650 mg Q4H PRN PO Temp>101F, Headache 03/09/16 17:15 Sodium Chloride (NS 1000 ml Inj) 1,000 ml @ 84 mls/hr [id number] IV 03/09/16 16:57 03/13/16 04:19 IV Flush (NS Flush) 2 ml UNSCH PRN IV FLUSH FLUSH AFTER USING IV ACCESS 03/09/16 17:00 IV Flush (NS Flush) 2 ml BID IV FLUSH 03/09/16 21:00 03/16/16 09:00 Pantoprazole Sodium (Protonix Inj) 40 mg DAILY IV 03/10/16 09:00 03/16/16 10:44 Enoxaparin Sodium (Lovenox Inj) 30 mg Q24H SQ 03/09/16 18:00 03/15/16 16:11 Miscellaneous Information 1 [id number] XX 03/09/16 17:00 Chlorhexidine Gluconate (Chlorhexidine 2% Cloth) Taper DAILY@04 TOP 03/10/16 04:00 03/06/17 03:59 03/13/16 04:00 Chlorhexidine Gluconate (Chlorhexidine 2% Cloth) 3 pack UNSCH PRN TOP HYGIENIC CARE 03/09/16 17:00 Atorvastatin Calcium (Lipitor) 20 mg DAILY PO 03/10/16 09:00 03/16/16 10:42 Tiotropium Corona 18 mcg 18 mcg DAILY INH 03/10/16 09:00 03/16/16 10:42 Pharmacy Profile Note 0 ml @ 0 mls/hr UNSCH OTHER 03/09/16 17:15 Diltiazem HCl/ Sodium Chloride (Cardizem Inj/NS Inj) 125 ml @ 0 mls/hr TITRATE IV 03/09/16 17:45 Terbutaline Sulfate 1 mg 1 mg UNSCH PRN SQ For Extravasation 03/09/16 18:30 Vancomycin HCl/ Sodium Chloride (Vancomycin Inj/ NS 250 ml Inj) 262.5 ml @ 262.5 mls/ hr Q18H IV 03/14/16 20:00 03/16/16 10:42 Miscellaneous Information SPECIFIC LAB TO BE MARILYN... ONCE ONCE XX 03/17/16 01:45 03/17/16 01:46 Furosemide (Lasix) 20 mg BID PO 03/15/16 21:00 03/16/16 10:43 Potassium Chloride (KCl) 10 meq BID PO 03/15/16 21:00 03/16/16 10:43 SOCIAL HISTORY No tobacco, daily alcohol. No illicit drugs. FAMILY HISTORY One alcoholic drink per day. No illicit drugs. FAMILY HISTORY Noncontributory. OBJ: Vital Signs Date Time Temp Pulse Resp B/P Pulse Ox O2 Delivery O2 Flow Rate FiO2 03/16/16 08:00 96.8 76 20 140/64 94 03/16/16 04:50 97.5 82 20 130/72 95 03/15/16 23:47 96.8 81 19 126/72 96 03/15/16 22:00 123 03/15/16 20:37 97.2 78 20 122/64 96 03/15/16 19:00 77 03/15/16 16:00 96.5 73 18 125/64 96 03/15/16 12:00 95.6 71 18 134/65 98 03/15/16 03/15/16 03/16/16 15:00 23:00 07:00 Intake Total 360 ml Balance 360 ml Intake Oral 360 ml # Voids 3 2 Laboratory Tests Test 03/16/16 08:02 White Blood Count 10.1 TH/MM3 Red Blood Count 3.54 MIL/MM3 Hemoglobin 10.2 GM/DL Hematocrit 30.9 % Mean Corpuscular Volume 87.2 FL Mean Corpuscular Hemoglobin 28.9 PG Mean Corpuscular Hemoglobin 33.1 % Concent Red Cell Distribution Width 14.1 % Platelet Count 563 TH/MM3 Mean Platelet Volume 6.7 FL Laboratory Tests Test 03/16/16 08:02 Sodium Level 142 MEQ/L Potassium Level 3.8 MEQ/L Chloride Level 108 MEQ/L Carbon Dioxide Level 27.1 MEQ/L Anion Gap 7 MEQ/L Blood Urea Nitrogen 17 MG/DL Creatinine 0.86 MG/DL Estimat Glomerular Filtration 84 ML/MIN Rate Random Glucose 89 MG/DL Calcium Level 8.0 MG/DL IMAGING: Chest X-Ray 03/10/16 0000 Signed Impressions: Service Date/Time: Thursday, March 10, 2016 04:39 - CONCLUSION: No significant change. Guzman Cifuentes MD Abdomen/Pelvis CT 03/09/16 1700 Signed Impressions: Service Date/Time: Wednesday, March 09, 2016 16:57 - CONCLUSION: 1. Apparent Whipple with Oscar-en-Y reconstruction of a bile duct. There is portal air evident. 2. There is adenopathy in the mj hepatis as well as in the retroperitoneum. The largest of these nodes measure 2 cm and are suspicious for neoplastic nodes. Rosas Ledezma MD FACR CT Angiography 03/09/16 0000 Signed Impressions: Service Date/Time: Wednesday, March 09, 2016 16:57 - CONCLUSION: 1. Minimal linear scarring or atelectasis in the right hemithorax with no confluent infiltrate or pulmonary embolus. 2. Pneumobilia which may be related to a prior cholecystectomy. 3. Cystic structure just medial to and possibly involving the right hepatic lobe. Findings are very nonspecific and include entities such as pseudocyst, hematoma, abscess or cystic mass lesion. Please see CT scan of the abdomen for further characterization. Jin Damon MD PHYSICAL EXAMINATION: IN GENERAL: No acute distress. Awake and alert and oriented. HEAD, EYES, EARS, NOSE, AND THROAT: Head atraumatic. Extraocular movements grossly intact. No icterus. No conjunctival erythema. Oropharynx moist mucosa without lesions. NECK: Supple without adenopathy or swelling. LUNGS: Clear BS. HEART: Regular S1-S2 without murmurs. ABDOMEN: Bowel sounds present, soft, nontender. No hepatosplenomegaly. No masses palpable. EXTREMITIES: No clubbing or cyanosis or edema. no peripheral embolic phenomena. SKIN: No rash. NEUROLOGIC: Nonfocal. PSYCHIATRIC: The patient calm and cooperative and pleasant. IMPRESSION: Septic shock / Bacteremia. Negative 2D ECHO. strep viridans. Improved. Leukocytosis. Improved. Acute Kidney disease. Improved. RECOMMENDATIONS Continue Vancomycin IV outpatient until 03/23/16. Discussed with patient. PIC line ordered. Discussed with case management to arrange antibiotics. Can be discharged today. Rhys Mosqueda MD Mar 16, 2016 11:37
[2016-03-16 12:26] VITALS: BP 130/67; PULSE 78; RESP 20; TEMP 96.2; O2SAT 95
--- NOTE | 2016-03-16 12:32 | HHI.PR ---
Subjective History of Present Illness feels good /ready to go home cough is better ,no sptum No fever or chills No CP or SOB No N/V Good appetite no abd pain Moving bowel No diarrhea Offers no other c/o Hospital Day: 6 Review of Systems Musculoskeletal MS: Swelling Vitals/Results Intake & Output 03/15/16 03/15/16 03/16/16 15:00 23:00 07:00 Intake Total 360 ml Balance 360 ml Intake Oral 360 ml # Voids 3 2 Vital Signs Vital Signs Date Time Temp Pulse Resp B/P Pulse Ox O2 Delivery O2 Flow Rate FiO2 03/16/16 12:26 96.2 78 20 130/67 95 03/16/16 08:00 96.8 76 20 140/64 94 03/16/16 07:00 68 03/16/16 04:50 97.5 82 20 130/72 95 03/15/16 23:47 96.8 81 19 126/72 96 03/15/16 22:00 123 03/15/16 20:37 97.2 78 20 122/64 96 03/15/16 19:00 77 03/15/16 16:00 96.5 73 18 125/64 96 CBC/BMP: 03/16/16 0802 03/16/16 0802 Lab Results Laboratory Tests Test 03/16/16 08:02 White Blood Count 10.1 TH/MM3 Red Blood Count 3.54 MIL/MM3 Hemoglobin 10.2 GM/DL Hematocrit 30.9 % Mean Corpuscular Volume 87.2 FL Mean Corpuscular Hemoglobin 28.9 PG Mean Corpuscular Hemoglobin 33.1 % Concent Red Cell Distribution Width 14.1 % Platelet Count 563 TH/MM3 Mean Platelet Volume 6.7 FL Sodium Level 142 MEQ/L Potassium Level 3.8 MEQ/L Chloride Level 108 MEQ/L Carbon Dioxide Level 27.1 MEQ/L Anion Gap 7 MEQ/L Blood Urea Nitrogen 17 MG/DL Creatinine 0.86 MG/DL Estimat Glomerular Filtration 84 ML/MIN Rate Random Glucose 89 MG/DL Calcium Level 8.0 MG/DL Physical Exam General General Appearance: No Acute Distress, Comfortable Eyes Eye Exam: Pupils Equal, Pupils Reactive, Sclera White, Extraocular Movement Intact Ears & Nose Ears & Nose Exam: Nasal Mucosa [place] Throat Throat Exam: Oral Mucosa [place] & Moist Neck Neck Exam: Neck Supple, Trachea Midline Pulmonary Resp Exam: Clear Bilaterally, Breath Sounds Equal, No Distress, Decreased Bases Cardiology CV Exam: Irregular CV Remarks irregularly irregular rhythm Gastrointestinal/Abdomen GI Exam: Soft, Non-Tender, Bowel Sounds Present Integumentary Skin Exam: Warm, Dry Extremeties Extremities Exam: Pedal Pulses Palpable, Dependent Edema Extremeties Remarks Mild bi-ankle edema Neurologic Neuro Exam: Alert, Awake, Oriented, Speech Clear, Moving All Extremities Psychiatric Psych Exam: Appropriate Responses VTE Prophylaxis VTE Prophylaxis Meds: Lovenox PUD Prophylasis PUD Prophylaxis: Protonix Assessment/Plan Assessment/Plan (1) s/p Severe sepsis (2) Acute kidney injury (3) Atrial fibrillation with RVR (4) Hx of cancer of lung (5) hx adrenal and pancreatic cancer (6) hx whipple procedure (7) Leukocytosis (8) COPD (chronic obstructive pulmonary disease) Mar 14, 2016 11:4 (9) recent influenza Assessment and Plan -Blood cultures 2/2 strep Viridans -repeat blood c/s ng so far -IV Vanco rec by ID till 03/23/16 -PICC line is ordered -renal function stable -monitor CBC. no fever. Acute renal injury, secondary to sepsis, creatinine improving/resolving off IV fluids - lasix 40 mg qd for edema Avoid nephrotoxic agents, NSAIDs, JANET inhibitor's Paroxysmal A. 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 Follows up at [place] and Dr. Garg, /in remission -monitor for now -Abdomen CT findings showed adenopathy in the mj hepatis as well as retroperitoneum, largest of nodes measuring 2 cm. Patient will need to follow-up with oncologist at [facility] severe protein calorie malnutrition encourage po intake protein supplement appetite improving and encouraged nutrition support. Continue with Protonix for GI prophylaxis, Lovenox for DVT prophylaxis ss for d/c planning/d/c home w HHC after PICC line placement see Orders see [facility] f/u pcp d/w PT d/w Ember Archibald MD Mar 16, 2016 12:32
[2016-03-16] MEDS ORDERED: FURO20TA PO (13:34)
[2016-03-16] MEDS ORDERED: POTA-243 PO (13:34)
--- NOTE | 2016-03-16 13:38 | HHI.FF ---
Face to Face Verification Diagnosis: (1) Atrial fibrillation with RVR (2) Severe sepsis (3) Streptococcus viridans infection (4) Leukocytosis (5) COPD (chronic obstructive pulmonary disease) (6) Hx of cancer of lung (7) Edema (8) recent influenza Physical Therapy Order: Evaluate and Treat, Improve ambulation, Strength and gait training Home Health Nursing Order: Medication education-adverse effect IV medication administration I have seen patient Blu Bright on 03/16/16. My clinical findings support the need for the requested home health care services because: Patient has SOB Deconditioned w/ increased weakness Infection w/ risk of complications I certify that my clinical findings support that this patient is homebound because: Hx COPD- exertion dyspnea/weakness Unsteady gait/balance Unsafe to leave home unassisted Ember Pemberton MD Mar 16, 2016 13:38
--- NOTE | 2016-03-16 17:29 | RADRPT ---
EXAM DATE/TIME: 03/16/2016 17:09 [facility] COMPARISON: CHEST SINGLE AP, March 10, 2016, 4:39. INDICATIONS : Evaluate port placement MEDICAL HISTORY : Chronic obstructive pulmonary disease. SURGICAL HISTORY : None. ENCOUNTER: Subsequent ACUITY: 1 week PAIN SCORE: 0/10 LOCATION: chest FINDINGS: Relative to prior examination there is diminished inspiratory effort. Right PICC line is in place whi ch terminates in the superior vena cava. Left basilar density obscuring the hemidiaphragm suggest inf iltrate or atelectasis. CONCLUSION: Right PICC line terminates the superior vena cava. Hypoaeration. Vague density left lung base obscuri ng the hemidiaphragm suggesting infiltrate or atelectasis in the lower lobe Craig Fischer MD on March 16, 2016 at 17:27 Board Certified Radiologist. This report was verified electronically.
[2016-03-17] MEDS ORDERED: PHARMACY ORDERED LAB XX ONE (01:45)
--- NOTE | 2016-03-17 15:18 | HHI.DS ---
Discharge Summary Admission Date Mar 09, 2016 at 17:02 Discharge Date: Mar 16, 2016 Admitting Diagnosis severe sepsis. Acute kidney injury. (1) Severe sepsis (2) Acute kidney injury (3) Atrial fibrillation with RVR (4) Hx of cancer of lung (5) hx adrenal and pancreatic cancer (6) hx whipple procedure (7) Leukocytosis (8) COPD (chronic obstructive pulmonary disease) (9) recent influenza CBC/BMP: 03/16/16 0802 03/16/16 0802 Significant Findings Laboratory Tests Test 03/16/16 08:02 Red Blood Count 3.54 MIL/MM3 (4.50-5.90) Hemoglobin 10.2 GM/DL (13.0-17.0) Hematocrit 30.9 % (39.0-51.0) Platelet Count 563 TH/MM3 (150-450) Mean Platelet Volume 6.7 FL (7.0-11.0) Chloride Level 108 MEQ/L (98-107) Estimat Glomerular Filtration 84 ML/MIN (>89) Rate Calcium Level 8.0 MG/DL (8.5-10.1) Imaging Last Impressions Chest X-Ray 03/16/16 0000 Signed Impressions: Service Date/Time: Wednesday, March 16, 2016 17:09 - CONCLUSION: Right PICC line terminates the superior vena cava. Hypoaeration. Vague density left lung base obscuring the hemidiaphragm suggesting infiltrate or atelectasis in the lower lobe Craig Fischer MD Abdomen/Pelvis CT 03/09/16 1700 Signed Impressions: Service Date/Time: Wednesday, March 09, 2016 16:57 - CONCLUSION: 1. Apparent Whipple with Oscar-en-Y reconstruction of a bile duct. There is portal air evident. 2. There is adenopathy in the mj hepatis as well as in the retroperitoneum. The largest of these nodes measure 2 cm and are suspicious for neoplastic nodes. Rosas Ledezma MD FACR CT Angiography 03/09/16 0000 Signed Impressions: Service Date/Time: Wednesday, March 09, 2016 16:57 - CONCLUSION: 1. Minimal linear scarring or atelectasis in the right hemithorax with no confluent infiltrate or pulmonary embolus. 2. Pneumobilia which may be related to a prior cholecystectomy. 3. Cystic structure just medial to and possibly involving the right hepatic lobe. Findings are very nonspecific and include entities such as pseudocyst, hematoma, abscess or cystic mass lesion. Please see CT scan of the abdomen for further characterization. Jin Damon MD Hospital Course This is a pleasant 89-year-old elderly male with significant past medical history of lung cancer, status post right middle lobectomy, recurrence of cancer to the right adrenal gland and pancreas, status post Whipple procedure in 2010, coronary repair, COPD, hypertension. Pt. had presented initially to his PCP a few weeks ago with fever, chills, cough and was diagnosed with Influenza A and underwent full course of treatment with Tamiflu. Patient presented to the emergency room on 03/09/2016 with worsening fever, chills and cough to the [place] emergency department. On presentation, he was hypotensive, in new-onset A. Fib RVR, with elevated wbc. Despite this, his room air spo2 was 96%. He vehemently denies abdominal pain, nausea, vomiting, and he continues to tolerate a diet. He did note 2-3 loose stools today, but this was normal and usual for him, and he would not classify this as diarrhea for him. No blood in his stool, dark tarry stools. He had a CT pulmonary angiogram that was negative for PE and negative for acute alveolar process. He had a CT abd/pelvis which demonstrated small amount of pneumobilia thought to be secondary to his prior Whipple's procedure. Camera Storage Clerk spoke with the on- call radiologist who re-examined the CT abd/pelvis and thought the dilated loop of small bowel adjacent to the liver could possibly be related to a closed-loop bowel obstruction radiographically. For the afib, patient was given 0.5mg digoxin iv x 1 and started on norepinephrine for hypotension. A femoral CVL was placed in the emergency department. His initial lactate was 4.7 in the ED. He is transferred to the ICU at [facility] for work-up and management of presumed septic shock, of unknown source. Pt. was admitted to the ICU under the diversity intern services. He was fluid resuscitated, cultures were obtained and empiric antibiotics were started. Repeat lactate down to 2.5. Patient is hemodynamically stable, he is off pressor support. Infectious disease has been consulted for antibiotic management. Blood cultures are showing gram-positive cocci. WBC significantly elevated, up to 46.8, today is 28.3. Has a mild cough, some sputum that is yellow, no chest pain. He has had no further episodes of atrial fibrillation, sinus rhythm on the monitor. Echocardiogram is currently pending. He was evaluated by cardiology, no anticoagulation is recommended. Creatinine is improving,1.3 today. Patient indicates that he follows up regularly at the [facility], had imaging studies done in September 2015 and was told his cancer is in remission. Locally he does see Dr. Garg at least once a year, he last saw her January 2016. Pt. was admitted with the following diagnoses: (1) s/p Severe sepsis (2) Acute kidney injury (3) Atrial fibrillation with RVR (4) Hx of cancer of lung (5) hx adrenal and pancreatic cancer (6) hx whipple procedure (7) Leukocytosis (8) COPD (chronic obstructive pulmonary disease) (9) recent influenza During the course of the hospitalization, the following took place: -initially septic, stabilized and transferred out of ICU -Pt. continued on antibiotics, ID continued to follow -Blood cultures 2/2 strep Viridans -repeat blood c/s ng so far -IV Vanco rec by ID till 03/23/16 -PICC line was ordered -renal function stable -monitored CBC. no fever. -ID cleared to go home with IV abx Acute renal injury, secondary to sepsis, creatinine improving/resolved Given IVF - lasix 40 mg qd for edema started, tolerated well Avoided nephrotoxic agents, NSAIDs, JANET inhibitor's Paroxysmal A. fib with RVR, resolved, likely secondary to sepsis Cardiology evaluated, no anticoagulation recommended Echo NL LVF EF 55 to 60% -Some SR seen on telemtry.alt with afib COPD, stable Continued with DuoNeb's as needed Hx of lung cancer with RML,s/p resection; s/p recurrence in 2010 with adrenal and pancreatic cancer-had Whipple procedure at [place]. Follows up at [place] and Dr. Garg, /in remission -monitored -Abdomen CT findings showed adenopathy in the mj hepatis as well as retroperitoneum, largest of nodes measuring 2 cm. - Patient instructed to follow-up with oncologist at [facility] severe protein calorie malnutrition -encourage po intake -protein supplement -appetite improving and encouraged nutrition support. Continued with Protonix for GI prophylaxis, Lovenox for DVT prophylaxis PT was ordered, pt. ambulated Pt improved, no fever. Renal function better CM consult for d/c planning- HHC and IV abx with PICC line placement Pt. discharged home in stable condition Pt Condition on Discharge: Stable Discharge Disposition: Disch w/ Home Health Serv Discharge Instructions DIET: Follow Instructions for: Heart Healthy Diet Fluid Restrictions: 1500cc/day Activities you can perform: Regular-No Restrictions Other Activity Instructions: elevate b/l lower ext when resting Follow up Referrals: Cardiology - 3 Weeks PCP Follow-up - 1 Week New Medications: Furosemide (Furosemide) 20 Mg Tab 20 MG PO BID edema #15 TAB Potassium Chloride ER (Klor-Con 10) 10 Meq Tab 10 MEQ PO BID low K #15 TAB Continued Medications: Atorvastatin (Atorvastatin) 20 Mg Tab 20 MG PO DAILY Cholesterol Management #30 Ref 0 TAB Levalbuterol Neb (Xopenex Neb) 0.31 Mg/3 Ml Neb 0.31 MG NEB DAILY #120 NEBULE Losartan-Hydrochlorothiazide (Losartan-Hydrochlorothiazide) 100-12.5 Mg Tab 1 TAB PO DAILY Blood Pressure Management #30 Ref 0 TAB Multiple Vitamins W/ Minerals (Multivitamin Adults) 1 Tab 1 TAB PO DAILY Nutritional Supplement Ref 0 TAB Pantoprazole (Protonix) 40 Mg Tab 40 MG PO DAILY Reflux #30 Ref 0 TAB Tiotropium Inh (Spiriva Handihaler) 18 Mcg Cap 18 MCG INH DAILY 1 capsule = 18 mcg COPD #30 Ref 0 CAP Discontinued Medications: Pantoprazole (Protonix) 20 Mg Tab 20 MG PO DAILY Reflux #30 Ref 0 TAB Adenike Lopez Mar 17, 2016 15:18 Pantoprazole (Protonix) 20 Mg Tab 20 MG PO DAILY Reflux #30 Ref 0 TAB Adenike Lopez Mar 17, 2016 15:18
== END 2016-03-16 18:55 | disposition home health service (06) | DRG 871 ==
LOC: PHED 15:03 → PHEDA 17:02 → HIMN 19:40 → N05A 03-12 12:33
PROVIDERS: ADMIT Specialist; ATTEND Specialist
PROC: 06HM33Z Insertion of Infusion Device into Right Femoral Vein, Percutaneous Approach (ICD-10-PCS; principal; 2016-03-09)
PROC: 02HV33Z Insertion of Infusion Device into Superior Vena Cava, Percutaneous Approach (ICD-10-PCS; 2016-03-16)
DX: A41.9 Sepsis, unspecified organism (principal); R65.21 Severe sepsis with septic shock; E43 Unspecified severe protein-calorie malnutrition; N17.9 Acute kidney failure, unspecified; E87.2 Acidosis; I48.0 Paroxysmal atrial fibrillation; E86.0 Dehydration; J44.9 Chronic obstructive pulmonary disease, unspecified; I10 Essential (primary) hypertension; K21.9 Gastro-esophageal reflux disease without esophagitis; I25.10 Atherosclerotic heart disease of native coronary artery without angina pectoris; R59.9 Enlarged lymph nodes, unspecified; M19.90 Unspecified osteoarthritis, unspecified site; R73.9 Hyperglycemia, unspecified; Z68.29 Body mass index [BMI] 29.0-29.9, adult; Z85.118 Personal history of other malignant neoplasm of bronchus and lung; Z85.858 Personal history of malignant neoplasm of other endocrine glands; Z85.07 Personal history of malignant neoplasm of pancreas; Z90.2 Acquired absence of lung [part of]; Z90.411 Acquired partial absence of pancreas
CPT/HCPCS: 36556; 36569; 36600; 71010; 71275; 74177; 76937; 80048; 80053; 80202; 82550; 82565; 82805; 83605; 83690; 83735; 84100; 84439; 84443; 84484; 85007; 85025; 85027; 85610; 85730; 87040; 87186; 87205; 87804; 93005; 93306; 94640; 94664; 96361; 96365; 96375; C9113; J0456; J1160; J1650; J3370; J3475; J7030; J7050; J7613; Q9967

== ENCOUNTER 2016-03-22 21:14 | Emergency (ER) | payer MEDICARE ==
[~2016-03-22] VITALS: Ht 177.8 cm; Wt 72.1 kg
[~2016-03-22 21:14] MED LIST changes: +ATOR20TA15 PO; -ATOR20TA42 PO; -CENTTAB9 PO; +FURO20TA PO; -LEVA1.2519 INH; +MULT1TAB84 PO; -NORC7.5T PO; +POTA-243 PO; -TUMS1000 PO; +[UNRECOGNIZED DRUG - CODE] NEB
[2016-03-22 21:21] VITALS: BP 97/55; PULSE 87; RESP 20; TEMP 98.8; O2SAT 94
[2016-03-22] MEDS ORDERED: VANC1000P IV (21:36)
[2016-03-22] MEDS ORDERED: BUPIVACAINE HCL PF 0.5% 10 ML VIAL INFIL ONE (21:45)
[2016-03-22] MEDS ORDERED: LIDOCAINE HCL 1% 50 ML VIAL INFIL ONE (21:45)
[2016-03-22] MEDS ORDERED: TETANUS/DIPHTHERIA TOXOID ADULT 0.5 ML VIAL IM ONE (21:45)
--- NOTE | 2016-03-22 22:02 | PD ---
HPI Chief Complaint: Laceration/Skin Injury Time Seen by Provider: 21:45 Travel History International Travel<30 days: No Contact w/Intl Traveler<30days: No Traveled to known affect area: No History of Present Illness HPI 89-year-old male presents to the emergency room for evaluation of toenail avulsion that occurred just prior to arrival. Patient believes he stubbed his left big toe on the back of his right shoe. He bled a moderate amount but that has since stopped. He is not on any blood thinners. Last tetanus was in 1991. 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) Cardiovascular Problems: Yes COPD: Yes Diabetes: No Diminished Hearing: No Endocrine: Yes (METS TO ADRENAL GLAND NEAR PANCREAS, WHIPPLE SX 2011) Gastrointestinal Disorders: Yes (HIATAL HERNIA) GERD: Yes Genitourinary: No Hepatitis: No Hiatal Hernia: Yes Hypertension: Yes Immune Disorder: No Implanted Vascular Access Dvce: No Medical other: Yes ( METS OF LUNG CA TO ADRENAL GLAND NEAR PANCREAS--WHIPPLE PROCEDURE 2011) Musculoskeletal: Yes (OSTEOARTHRITIS) Neurologic: No Psychiatric: No Reproductive: No Respiratory: Yes (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, METS TO ADRENAL GLAND NEAR PANCRE) Immunizations Current: Yes Thyroid Disease: No Influenza Vaccination: Yes Past Surgical History Abdominal Surgery: Yes (WHIPPLE PROCEDURE 2011) AICD: No Eye Surgery: Yes ("right eye surgery"--2006) Genitourinary Surgery: Yes (BILATERAL INGUINAL HERNIA) Joint Replacement: No Pacemaker: No Thoracic Surgery: Yes (right middle lung lobectomy 2008) Other Surgery: Yes Social History Alcohol Use: Yes (1 DAILY) Tobacco Use: No Substance Use: No Allergies-Medications (Allergen,Severity, Reaction): Coded Allergies: Penicillin (Verified Allergy, Mild, DENIES ALLERGY TO PCN, 03/09/16) PATIENT STATES HE HAD A TEST AND [facility] STATES HE IS NOT ALLERGIC TO PENICILLIN. VERIFIED 11/23/12 TM Reported Meds & Prescriptions Reported Meds & Active Scripts Active Klor-Con 10 (Potassium Chloride) 10 Meq Tab 10 Meq PO BID Furosemide 20 Mg Tab 20 Mg PO BID Reported Vancomycin Inj (Vancomycin HCl) 1,000 Mg Inj 1,600 Mg IV DAILY Xopenex Neb (Levalbuterol HCl) 0.31 Mg/3 Ml Neb 0.31 Mg NEB DAILY Spiriva Handihaler (Tiotropium Inh) 18 Mcg Cap 18 Mcg INH DAILY 1 capsule = 18 mcg Protonix (Pantoprazole Sodium) 40 Mg Tab 40 Mg PO DAILY Multivitamin Adults (Multiple Vitamins W/ Minerals) 1 Tab 1 Tab PO DAILY Losartan-Hydrochlorothiazide 100-12.5 Mg Tab 1 Tab PO DAILY Atorvastatin (Atorvastatin Calcium) 20 Mg Tab 20 Mg PO DAILY Review of Systems Except as stated in HPI: all other systems reviewed are Neg Physical Exam Narrative GENERAL: Well-nourished, well-developed male in no acute distress. Afebrile. Ambulatory. SKIN: Warm and dry. The left great toenail is half avulsed. Hemostasis controlled. HEAD: Normocephalic. EYES: No scleral icterus. No injection or drainage. NECK: Supple, trachea midline. No JVD or lymphadenopathy. Data Data Last Documented VS Vital Signs Date Time Temp Pulse Resp B/P Pulse Ox O2 Delivery O2 Flow Rate FiO2 03/22/16 21:21 98.8 87 20 97/55 94 Orders Bupivacaine Pf 0.5% Inj (Marcaine Pf 0.5 (03/22/16 21:45) Lidocaine 1% Inj (50 Ml) (Xylocaine 1% I (03/22/16 21:45) Tetanus/Diphtheria Tox Adult (Tetanus/Di (03/22/16 21:45) MDM Medical Decision Making Medical Screen Exam Complete: Yes Emergency Medical Condition: Yes Medical Record Reviewed: Yes Differential Diagnosis Toenail avulsion versus laceration versus abrasion Narrative Course 89-year-old male presents to the emergency room for evaluation of left great toenail avulsion that occurred just prior to arrival. Patient leaves he caught his left great toenail against the heel of his right shoe. Physical exam reveals left great toenail is half avulsed. Hemostasis controlled. Toenail was removed and nail bed was thoroughly cleansed. No nailbed laceration. Toenail was reapproximated, see procedure note for details. Tetanus updated. Patient discharged with wound care instructions and told to follow up with a consumer safety officer to return for worsening symptoms. He understands and agrees to plan. Procedures Procedure Narrative Toenail avulsion repair: The area was prepped with Betadine and sterilely draped. Digital block was performed using 0.5% ropivacaine 1% lidocaine. The wound was copiously irrigated and explored without evidence of foreign body, tendon injury or neurovascular injury. The toenail was reapproximated and reattached with glue. A sterile dressing was applied. The patient was advised to keep the dressing clean and dry. Patient tolerated the procedure well. Diagnosis Primary Impression: Avulsion of toenail of left foot Referrals: Sustainable Development Policy Analyst Patient Instructions: General Instructions, Nail Avulsion (ED) Additional Instructions: Rest and drink plenty of fluids. Keep wound clean and dry. Follow-up with a podiatrists. Return to the emergency room for worsening symptoms. Disposition: 01 DISCHARGE HOME Condition: Stable [place] Mar 22, 2016 22:01
== END 2016-03-22 22:44 | disposition home or self-care (01) ==
LOC: PHEFT 21:14
DX: S91.202A Unspecified open wound of left great toe with damage to nail, initial encounter (principal); W22.8XXA Striking against or struck by other objects, initial encounter; Z23 Encounter for immunization
CPT/HCPCS: 11730; 90471; 90714

== ENCOUNTER → 2016-05-11 | Outpatient (CLI) | payer MEDICARE ==
[~2016-05-11] MED LIST changes: +VANC1000P IV
[2016-05-11 15:41] LABS: AUTOMATED NEUTROPHIL # 5.2 TH/MM3 (1.8-7.7); BASOPHIL # 0.1 TH/MM3 (0-0.2); BASOPHIL % 0.7 % (0.0-2.0); EOSINOPHIL # 0.3 TH/MM3 (0-0.4); EOSINOPHIL % 3.3 % (0.0-4.0); HEMATOCRIT 38.4 % (39.0-51.0); HEMO FLAGS DIFF FINAL; LYMPH % 23.7 % (9.0-44.0); MEAN CELL VOLUME 88.4 FL (80.0-100.0); MEAN CORPUSCULAR HEMOGLOBIN 29.9 PG (27.0-34.0); MEAN CORPUSCULAR HGB CONC 33.8 % (32.0-36.0); MONO % 10.8 % (0.0-8.0); NEUT % 61.5 % (16.0-70.0); PLATELET COUNT 348 TH/MM3 (150-450); RED BLOOD COUNT 4.35 MIL/MM3 (4.50-5.90); RED CELL DISTRIBUTION WIDTH 14.6 % (11.6-17.2); WHITE BLOOD COUNT 8.5 TH/MM3 (4.0-11.0)
[2016-05-11 16:02] LABS: TRANSFERRIN IRON PROFILE 188 MG/DL (200-360)
== END ==
LOC: PLAB 14:07
PROVIDERS: ATTEND Internal Medicine
DX: D64.9 Anemia, unspecified (principal)
CPT/HCPCS: 36415; 82607; 82746; 83540; 83550; 85025

== ENCOUNTER → 2016-08-07 | Outpatient (CLI) | payer MEDICARE ==
[2016-08-07 13:18] LABS: AUTOMATED NEUTROPHIL # 3.4 TH/MM3 (1.8-7.7); BASOPHIL # 0.1 TH/MM3 (0-0.2); BASOPHIL % 0.9 % (0.0-2.0); EOSINOPHIL # 0.3 TH/MM3 (0-0.4); EOSINOPHIL % 4.7 % (0.0-4.0); HEMATOCRIT 39.3 % (39.0-51.0); HEMO FLAGS DIFF FINAL; LYMPH % 21.7 % (9.0-44.0); LYMPHOCYTE # 1.2 TH/MM3 (1.0-4.8); MEAN CELL VOLUME 88.9 FL (80.0-100.0); MEAN CORPUSCULAR HEMOGLOBIN 28.5 PG (27.0-34.0); MEAN CORPUSCULAR HGB CONC 32.1 % (32.0-36.0); MONO % 12.7 % (0.0-8.0); PLATELET COUNT 285 TH/MM3 (150-450); RED BLOOD COUNT 4.42 MIL/MM3 (4.50-5.90); RED CELL DISTRIBUTION WIDTH 13.5 % (11.6-17.2); WHITE BLOOD COUNT 5.7 TH/MM3 (4.0-11.0)
[2016-08-07 13:36] LABS: ANION GAP 9 MEQ/L (5-15); AST (GOT) 16 U/L (15-37); BICARBONATE 27.9 MEQ/L (21.0-32.0); BLOOD UREA NITROGEN 19 MG/DL (7-18); CHLORIDE 105 MEQ/L (98-107); POTASSIUM 3.8 MEQ/L (3.5-5.1); SODIUM (NA) 142 MEQ/L (136-145)
[2016-08-07 13:37] LABS: GLOMERULAR FILTRATION RATE 81 ML/MIN (>89); GLUCOSE,FASTING 90 MG/DL (74-99)
[2016-08-07 13:51] LABS: ALKALINE PHOSPHATASE 79 U/L (45-117); ALT (GPT) 17 U/L (12-78); HDL CHOLESTEROL 58.2 MG/DL (40.0-60.0); LDL CHOLESTEROL 59 MG/DL (0-99); TOTAL BILIRUBIN ADULT 0.8 MG/DL (0.2-1.0)
[2016-08-07 15:53] LABS: HEMOGLOBIN A1a 1.4 %; HEMOGLOBIN A1b 1.8 %; HEMOGLOBIN Ao 82.5 %; HEMOGLOBIN LA1C 2.4 %; HEMOGLOBIN P3 4.7 %
== END ==
LOC: PLAB 07:59
PROVIDERS: ATTEND Internal Medicine
DX: I10 Essential (primary) hypertension (principal); K21.9 Gastro-esophageal reflux disease without esophagitis; E78.00 Pure hypercholesterolemia, unspecified
CPT/HCPCS: 36415; 80053; 80061; 83036; 84443; 85025

== ENCOUNTER → 2017-02-04 | Outpatient (CLI) | payer MEDICARE ==
[~2017-02-04] MED LIST changes: +KLOR10TA PO; -POTA-243 PO
[2017-02-04 09:28] LABS: AUTOMATED NEUTROPHIL # 4.2 TH/MM3 (1.8-7.7); BASOPHIL % 0.5 % (0.0-2.0); EOSINOPHIL # 0.4 TH/MM3 (0-0.4); EOSINOPHIL % 5.7 % (0.0-4.0); HEMATOCRIT 40.7 % (39.0-51.0); HEMO FLAGS DIFF FINAL; LYMPH % 20.1 % (9.0-44.0); LYMPHOCYTE # 1.4 TH/MM3 (1.0-4.8); MEAN CELL VOLUME 89.9 FL (80.0-100.0); MEAN CORPUSCULAR HEMOGLOBIN 30.2 PG (27.0-34.0); MEAN CORPUSCULAR HGB CONC 33.6 % (32.0-36.0); MONO % 11.9 % (0.0-8.0); NEUT % 61.8 % (16.0-70.0); PLATELET COUNT 285 TH/MM3 (150-450); RED BLOOD COUNT 4.53 MIL/MM3 (4.50-5.90); RED CELL DISTRIBUTION WIDTH 13.7 % (11.6-17.2); WHITE BLOOD COUNT 6.8 TH/MM3 (4.0-11.0)
[2017-02-04 10:15] LABS: ANION GAP 4 MEQ/L (5-15); AST (GOT) 15 U/L (15-37); BICARBONATE 28.8 MEQ/L (21.0-32.0); BLOOD UREA NITROGEN 19 MG/DL (7-18); CHLORIDE 106 MEQ/L (98-107); GLOMERULAR FILTRATION RATE 74 ML/MIN (>89); POTASSIUM 4.5 MEQ/L (3.5-5.1); SODIUM (NA) 139 MEQ/L (136-145)
[2017-02-04 10:30] LABS: ALKALINE PHOSPHATASE 79 U/L (45-117); ALT (GPT) 15 U/L (12-78); GLUCOSE,FASTING 95 MG/DL (74-99); HDL CHOLESTEROL 61.7 MG/DL (40.0-60.0); LDL CHOLESTEROL 45 MG/DL (0-99); TOTAL BILIRUBIN ADULT 1.3 MG/DL (0.2-1.0)
[2017-02-04 11:45] LABS: HEMOGLOBIN A1a 1.2 %; HEMOGLOBIN A1b 1.5 %; HEMOGLOBIN Ao 83.9 %; HEMOGLOBIN LA1C 2.3 %; HEMOGLOBIN P3 4.2 %
== END ==
LOC: PLAB 07:57
PROVIDERS: ATTEND Internal Medicine
DX: E11.9 Type 2 diabetes mellitus without complications (principal); E78.00 Pure hypercholesterolemia, unspecified
CPT/HCPCS: 36415; 80053; 80061; 83036; 85025